=== PATIENT | female | born 1945 ===

== ENCOUNTER 2019-04-13 17:59 | Outpatient (CLI) | payer OTHER | END 2019-04-13 18:00 | disposition home or self-care (01) | LOC: LAB 17:59 | DX: Z00.01 Encounter for general adult medical examination with abnormal findings (principal); D64.89 Other specified anemias ==

== ENCOUNTER 2024-03-06 10:52 | Inpatient (IN) | payer OTHER ==
[~2024-03-06] VITALS: Ht 152.4 cm; Wt 45.4 kg
[2024-03-06] MEDS ORDERED: FAMOtidine 10 MG/ML (4ML VIAL) IV ONE (11:15)
[2024-03-06] MEDS ORDERED: 0.9 % SODIUM CHLORIDE 1,000 ML IV ONE (11:15)
[2024-03-06] MEDS ORDERED: FAMOTIDINE/PF 20 MG/2 ML VIAL ONE (11:20)
[2024-03-06 11:51] LABS: MEAN CELL VOLUME 110.3 fL (80.00-100.00); MEAN CORPUSCULAR HGB CONC 36.5 g/dl (32.0-36.0); PLATELET COUNT 133 K/uL (150-450); RED BLOOD COUNT 1.84 M/uL (4.00-6.00); RED CELL DISTRIBUTION WIDTH 14.5 % (11.5-14.5)
[2024-03-06 12:02] LABS: MEAN CORPUSCULAR HEMOGLOBIN 40.2 pg (27.00-32.0)
[2024-03-06 12:03] LABS: HEMATOCRIT 20.3 % (36.0-45.00); HEMOGLOBIN 7.4 g/dL (12.0-15.00)
[2024-03-06 12:05] LABS: INR 1.06; PARTIAL THROMBOPLASTIN TIME 22.5 SECONDS (22.0-34.0); PROTHROMBIN TIME 11.5 SECONDS (9.0-11.5)
[2024-03-06 12:15] LABS: ALBUMIN 3.5 gm/dL (3.4-5.0); CALCIUM 9.2 mg/dL (8.5-10.1); CREATININE SERUM 1.85 mg/dL (0.55-1.02); GFR 26.36; GLOBULINA 4.2 G/DL (2.4-3.5); TOTAL PROTEIN 7.7 gm/dL (6.4-8.2)
[2024-03-06 12:34] LABS: BILIRUBIN,CONJUGATED 0.18 mg/dL (0.0-0.2); POTASSIUM 3.22 mEq/L (3.5-5.1)
[2024-03-06 12:59] LABS: BILIRUBIN TOTAL 8.18 mg/dL (0.3-1.2)
[2024-03-06 17:06] LABS: URINE APPEARANCE Turbid; URINE BILIRRUBIN Small (NEGATIVE); URINE BLOOD Small; URINE COLOR Red; URINE GLUCOSE Negative (NEGATIVE); URINE KETONE Negative (NEGATIVE); URINE LEUKOCYTE Moderate; URINE NITRATE Positive; URINE PROTEIN 30 (NEGATIVE); URINE UROBILINOGEN 0.2 E.U./dl
[2024-03-06 17:13] LABS: URINE BACTERIA 60.4 uL (0.0-1933); URINE CAST 2.28 uL (0.0-1.40); URINE EPITHELIAL CELLS 79.6 uL (0.0-38.8); URINE RBC 604.4 uL (0.0-20.8); URINE WBC 15.9 uL (0.0-23.2)
[2024-03-06 17:49] LABS: URINE YEAST NEGATIVE /hpf
[2024-03-06] MEDS ORDERED: DEXTROSE 5 % AND 0.9 % NACL 1,000 ML IV SCH (19:45)
[2024-03-06] MEDS ORDERED: DIPHENHYDRAMINE HCL 50 MG/ML VIAL 1ML IV ONE (19:45)
[2024-03-06] MEDS ORDERED: METHYLPREDNISOLONE SOD SUCC 40 MG VIAL IV ONE (19:45)
[2024-03-06] MEDS ORDERED: FUROsemide 20 MG/2 ML VIAL IV SCH (19:45)
[2024-03-06] MEDS ORDERED: ONDANSETRON HCL 4 MG in 0.9 % SODIUM CHLORIDE 50 ML IV PRN (20:00)
[2024-03-06] MEDS ORDERED: hydrALAZINE HCL 20 MG VIAL IV PRN (20:00)
[2024-03-06] MEDS ORDERED: CEFTRIAXONE SODIUM 1,000 MG VIAL IV SCH (20:16)
[2024-03-06] MEDS ORDERED: DIPHENHYDRAMINE HCL 50 MG/ML VIAL 1ML ONE (20:23)
[2024-03-06] MEDS ORDERED: METHYLPREDNISOLONE SOD SUCC 40 MG VIAL ONE (20:23)
[2024-03-06] MEDS ORDERED: CEFTRIAXONE SODIUM 1,000 MG VIAL ONE (21:28)
[2024-03-06 21:47] VITALS: BP 169/75; O2SAT 100
[2024-03-07 00:19] VITALS: BP 179/67; O2SAT 98
[2024-03-07 03:10] VITALS: BP 156/88; O2SAT 100
[2024-03-07] MEDS ORDERED: PANTOPRAZOLE SODIUM 40 MG in 0.9 % SODIUM CHLORIDE 8 ML IV PUSH SCH (09:00)
[2024-03-07 09:33] VITALS: BP 155/67
[2024-03-07] MEDS ORDERED: METHYLPREDNISOLONE SOD SUCC 40 MG VIAL IV SCH (13:00)
[2024-03-07 18:32] VITALS: BP 152/61
[2024-03-07] MEDS ORDERED: PANTOPRAZOLE SODIUM 40 MG/VIAL VIAL IV PUSH SCH (21:00)
[2024-03-08 03:35] VITALS: BP 165/79; O2SAT 98
[2024-03-08 08:44] LABS: MEAN CELL VOLUME 108.3 fL (80.00-100.00); PLATELET COUNT 141 K/uL (150-450); RED BLOOD COUNT 2.04 M/uL (4.00-6.00)
[2024-03-08 08:55] LABS: ERYTHROCYTE SEDIMENTATION RATE > 130 mm/hr
[2024-03-08] MEDS ORDERED: CEFTRIAXONE SODIUM 2,000 MG VIAL IV SCH (09:00)
[2024-03-08 09:06] LABS: HEMATOCRIT 22.1 % (36.0-45.00); MEAN CORPUSCULAR HEMOGLOBIN 37.7 pg (27.00-32.0); RED CELL DISTRIBUTION WIDTH 17.5 % (11.5-14.5)
[2024-03-08 09:07] VITALS: BP 166/87; O2SAT 97
[2024-03-08 09:07] LABS: HEMOGLOBIN 7.7 g/dL (12.0-15.00)
[2024-03-08 09:31] LABS: ALBUMIN 3.9 gm/dL (3.4-5.0); BILIRUBIN TOTAL 2.72 mg/dL (0.3-1.2); BILIRUBIN,CONJUGATED 0.43 mg/dL (0.0-0.2); BILIRUBIN,UNCONJUGATED 2.29 mg/dL (0.0-0.6); C-REACTIVE PROTEIN 0.79 MG/DL (0.00-0.29); CALCIUM 8.8 mg/dL (8.5-10.1); CHOL HDL RATIO 2.2 (0-5.0); CREATININE SERUM 1.15 mg/dL (0.55-1.02); GFR 45.63; GLOBULINA 4.2 G/DL (2.4-3.5); POTASSIUM 3.4 mEq/L (3.5-5.1); TOTAL PROTEIN 8.1 gm/dL (6.4-8.2)
[2024-03-08 09:42] LABS: URIC ACID 5.5 mg/dL (2.5-7.5)
[2024-03-08 10:22] LABS: ob NEGATIVE (NEGATIVE)
[2024-03-08 11:42] LABS: URINE APPEARANCE Cloudy; URINE BILIRRUBIN Negative (NEGATIVE); URINE BLOOD Large; URINE COLOR Yellow; URINE GLUCOSE Negative (NEGATIVE); URINE KETONE Trace (NEGATIVE); URINE LEUKOCYTE Trace; URINE NITRATE Negative; URINE PROTEIN 30 (NEGATIVE); URINE UROBILINOGEN 0.2 E.U./dl
[2024-03-08 11:44] LABS: URINE BACTERIA 25.1 uL (0.0-1933); URINE EPITHELIAL CELLS 33.5 uL (0.0-38.8); URINE RBC 157.2 uL (0.0-20.8); URINE WBC 18.8 uL (0.0-23.2)
[2024-03-08 11:52] LABS: URINE CAST 0.61 uL (0.0-1.40)
[2024-03-08 18:15] VITALS: BP 160/74; O2SAT 96
[2024-03-08] MEDS ORDERED: DEXTROSE 5 %-0.45 % SOD CHLORD 1,000 ML IV SCH (18:30)
[2024-03-08] MEDS ORDERED: POTASSIUM CHLORIDE 20MEQ/100ML H2O PB IV ONE (19:08)
[2024-03-08] MEDS ORDERED: POTASSIUM CHLORIDE IN WATER 100 ML IV SCH (20:00)
[2024-03-09] MEDS ORDERED: hydrALAZINE HCL 20 MG VIAL IV SCH
[2024-03-09 02:19] VITALS: BP 156/55
[2024-03-09 07:06] LABS: hav igm Negative (Negative); hcv Non Reactive (Non Reactive); hep b c Negative (Negative); hep b s ag Negative (Negative)
[2024-03-09 09:10] LABS: HAPTOGLOBIN < 10 mg/dL (42-346)
[2024-03-09 09:20] LABS: PLATELET ESTIMATE NORMAL (NORMAL)
[2024-03-09 09:39] VITALS: BP 168/80; O2SAT 100
[2024-03-09 10:39] LABS: ALBUMIN 3.7 gm/dL (3.4-5.0); BILIRUBIN TOTAL 1.93 mg/dL (0.3-1.2); CALCIUM 8.6 mg/dL (8.5-10.1); CREATININE SERUM 1.11 mg/dL (0.55-1.02); GFR 47.54; GLOBULINA 3.8 G/DL (2.4-3.5); POTASSIUM 3.46 mEq/L (3.5-5.1); TOTAL PROTEIN 7.5 gm/dL (6.4-8.2)
[2024-03-09 10:41] LABS: BILIRUBIN,CONJUGATED 0.34 mg/dL (0.0-0.2); BILIRUBIN,UNCONJUGATED 1.59 mg/dL (0.0-0.6)
[2024-03-09 18:13] VITALS: BP 160/80; O2SAT 97
[2024-03-10 02:42] VITALS: BP 175/81
[2024-03-10 09:22] VITALS: BP 175/77
[2024-03-10 17:07] VITALS: BP 147/62
[2024-03-10 19:11] LABS: MEAN CELL VOLUME 111.2 fL (80.00-100.00); MEAN CORPUSCULAR HGB CONC 34.1 g/dl (32.0-36.0); RED BLOOD COUNT 1.99 M/uL (4.00-6.00); RED CELL DISTRIBUTION WIDTH 18.8 % (11.5-14.5)
[2024-03-10 19:18] LABS: HEMATOCRIT 22.1 % (36.0-45.00); MEAN CORPUSCULAR HEMOGLOBIN 37.6 pg (27.00-32.0); PLATELET COUNT 86 K/uL (150-450)
[2024-03-10 19:19] LABS: HEMOGLOBIN 7.5 g/dL (12.0-15.00)
[2024-03-11 02:34] VITALS: BP 106/50; O2SAT 98
[2024-03-11 04:44] VITALS: O2SAT 98
[2024-03-11 09:23] VITALS: BP 122/67; O2SAT 98
[2024-03-11 12:57] LABS: HEMATOCRIT 24.9 % (36.0-45.00); MEAN CELL VOLUME 105.9 fL (80.00-100.00); MEAN CORPUSCULAR HGB CONC 34.8 g/dl (32.0-36.0); RED BLOOD COUNT 2.36 M/uL (4.00-6.00); RED CELL DISTRIBUTION WIDTH 19.3 % (11.5-14.5)
[2024-03-11 13:38] LABS: MEAN CORPUSCULAR HEMOGLOBIN 36.8 pg (27.00-32.0)
[2024-03-11 13:40] LABS: HEMOGLOBIN 8.7 g/dL (12.0-15.00)
[2024-03-11 13:44] LABS: PLATELET COUNT 25 K/uL (150-450)
[2024-03-11] MEDS ORDERED: ACETAMINOPHEN 500 MG GEL..CAP PO PRN (15:15)
[2024-03-11 16:43] VITALS: BP 108/73; O2SAT 97
[2024-03-11 20:56] VITALS: BP 130/78
[2024-03-11] MEDS ORDERED: MORPHINE SULFATE 4 MG/ML VIAL IV SCH (21:00)
[2024-03-12 00:57] VITALS: BP 131/65; O2SAT 98
[2024-03-12 08:00] VITALS: BP 103/62; O2SAT 97
[2024-03-12] MEDS ORDERED: MORPHINE SULFATE 4 MG/ML CARTRIDGE IV SCH (09:00)
[2024-03-12 17:06] VITALS: BP 134/73; O2SAT 97
[2024-03-13 00:49] VITALS: BP 150/77; O2SAT 98
[2024-03-13 08:47] VITALS: BP 160/83
[2024-03-13 12:37] LABS: HEMATOCRIT 29.2 % (36.0-45.00); HEMOGLOBIN 10.2 g/dL (12.0-15.00); MEAN CELL VOLUME 92.7 fL (80.00-100.00); MEAN CORPUSCULAR HEMOGLOBIN 32.3 pg (27.00-32.0); MEAN CORPUSCULAR HGB CONC 34.8 g/dl (32.0-36.0); RED BLOOD COUNT 3.15 M/uL (4.00-6.00); RED CELL DISTRIBUTION WIDTH 19.9 % (11.5-14.5)
[2024-03-13 12:41] LABS: PLATELET COUNT 21 K/uL (150-450)
[2024-03-13 17:17] VITALS: BP 184/81
[2024-03-14 00:44] VITALS: BP 150/69; O2SAT 97
[2024-03-14 08:03] LABS: ALBUMIN 2.2 gm/dL (3.4-5.0); BILIRUBIN TOTAL 3.81 mg/dL (0.3-1.2); GLOBULINA 2.6 G/DL (2.4-3.5); TOTAL PROTEIN 4.8 gm/dL (6.4-8.2)
[2024-03-14 08:11] LABS: HEMATOCRIT 28.2 % (36.0-45.00); MEAN CELL VOLUME 92.9 fL (80.00-100.00); MEAN CORPUSCULAR HGB CONC 35.5 g/dl (32.0-36.0); RED BLOOD COUNT 3.04 M/uL (4.00-6.00); RED CELL DISTRIBUTION WIDTH 20.6 % (11.5-14.5)
[2024-03-14 08:50] VITALS: BP 156/80
[2024-03-14 09:06] LABS: PLATELET COUNT 10 K/uL (150-450)
[2024-03-14 09:16] LABS: CALCIUM 6.3 mg/dL (8.5-10.1); GFR 7.08; POTASSIUM 2.88 mEq/L (3.5-5.1)
[2024-03-14 09:17] LABS: CREATININE SERUM 5.78 mg/dL (0.55-1.02)
[2024-03-14] MEDS ORDERED: POTASSIUM CHLORIDE IN WATER 100 ML IV SCH (12:00)
[2024-03-14 17:18] VITALS: BP 194/78
[2024-03-14] MEDS ORDERED: POTASSIUM CHLORIDE IN WATER 40 MEQ/100 ML PIGGYBAG IV ONE (18:45)
[2024-03-14] MEDS ORDERED: PIPERACILLIN/TAZOBACTAM SODIUM 2.25 GM VIAL IV SCH (18:47)
[2024-03-15 00:59] VITALS: BP 160/77; O2SAT 97
[2024-03-15 04:38] VITALS: BP 134/62; O2SAT 97
[2024-03-15 06:54] LABS: HEMATOCRIT 26.6 % (36.0-45.00); HEMOGLOBIN 9.2 g/dL (12.0-15.00); MEAN CELL VOLUME 92.8 fL (80.00-100.00); MEAN CORPUSCULAR HEMOGLOBIN 32.2 pg (27.00-32.0); MEAN CORPUSCULAR HGB CONC 34.7 g/dl (32.0-36.0); RED BLOOD COUNT 2.87 M/uL (4.00-6.00); RED CELL DISTRIBUTION WIDTH 20.1 % (11.5-14.5)
[2024-03-15 07:35] LABS: PLATELET COUNT 16 K/uL (150-450)
[2024-03-15 07:41] LABS: BILIRUBIN TOTAL 2.49 mg/dL (0.3-1.2); GLOBULINA 2.9 G/DL (2.4-3.5); TOTAL PROTEIN 4.9 gm/dL (6.4-8.2); URIC ACID 10.3 mg/dL (2.5-7.5)
[2024-03-15 08:20] LABS: GFR 6.48
[2024-03-15 08:21] LABS: CREATININE SERUM 6.24 mg/dL (0.55-1.02)
[2024-03-15 08:22] LABS: POTASSIUM 2.85 mEq/L (3.5-5.1)
[2024-03-15 08:47] VITALS: BP 143/56
[2024-03-15 08:53] LABS: PLATELET ESTIMATE DECREASED (NORMAL)
[2024-03-15] MEDS ORDERED: FUROsemide 40 MG/4 ML VIAL IV NR (14:04)
[2024-03-15] MEDS ORDERED: DEXAMETHASONE SODIUM PHOSPHATE 4 MG/ML VIAL IJ SCH ×2 (17:00→21:00)
[2024-03-15] MEDS ORDERED: AMPICILLIN SODIUM/SULBACTAM NA 3,000 MG VIAL IV SCH (17:00)
[2024-03-15 18:10] VITALS: BP 134/76
[2024-03-16 01:49] VITALS: BP 140/85
[2024-03-16 08:56] LABS: ALBUMIN 2.4 gm/dL (3.4-5.0); BILIRUBIN TOTAL 2.1 mg/dL (0.3-1.2); CALCIUM 7.8 mg/dL (8.5-10.1); GFR 6.03; GLOBULINA 3.3 G/DL (2.4-3.5); POTASSIUM 3.12 mEq/L (3.5-5.1); TOTAL PROTEIN 5.7 gm/dL (6.4-8.2)
[2024-03-16 09:00] VITALS: BP 145/71
[2024-03-16 09:14] LABS: CREATININE SERUM 6.64 mg/dL (0.55-1.02)
[2024-03-16] MEDS ORDERED: RINGERS SOLUTION,LACTATED 1,000 ML IV SCH (10:15)
[2024-03-16] MEDS ORDERED: MAGNESIUM SULFATE IN WATER 50 ML IV NR (11:00)
[2024-03-16 11:08] LABS: ABG PH 7.379 (7.35-7.45); ABG PO2 90.9 mmHg (80-100); ABG pCO2 26.3 mmHg (35-45); BASE EXCESS -8.1 mmol/l; BICARBONATE 15.2 mmol/l (23-25); SaO2 96.6 %
[2024-03-16 11:15] LABS: allen test SATISFACTORY; o2 21 %; puncture site RADIAL LEFT
[2024-03-16 12:14] LABS: HEMATOCRIT 26.9 % (36.0-45.00); HEMOGLOBIN 9.2 g/dL (12.0-15.00); MEAN CELL VOLUME 92.1 fL (80.00-100.00); MEAN CORPUSCULAR HEMOGLOBIN 31.5 pg (27.00-32.0); MEAN CORPUSCULAR HGB CONC 34.2 g/dl (32.0-36.0); RED BLOOD COUNT 2.92 M/uL (4.00-6.00); RED CELL DISTRIBUTION WIDTH 19.4 % (11.5-14.5)
[2024-03-16 12:16] LABS: PLATELET COUNT 43 K/uL (150-450)
[2024-03-16 12:37] LABS: INR 1.24; PARTIAL THROMBOPLASTIN TIME 36.9 SECONDS (22.0-34.0); PROTHROMBIN TIME 13.3 SECONDS (9.0-11.5)
[2024-03-16] MEDS ORDERED: POTASSIUM CHLORIDE IN WATER 100 ML IV SCH (13:00)
[2024-03-16 13:18] LABS: ALBUMIN 2.3 gm/dL (3.4-5.0); BILIRUBIN TOTAL 1.82 mg/dL (0.3-1.2); CALCIUM 7.7 mg/dL (8.5-10.1); GLOBULINA 3.3 G/DL (2.4-3.5); TOTAL PROTEIN 5.6 gm/dL (6.4-8.2)
[2024-03-16 13:23] LABS: PLATELET ESTIMATE NORMAL (NORMAL)
[2024-03-16 13:35] LABS: GFR 5.99
[2024-03-16 13:37] LABS: POTASSIUM 2.84 mEq/L (3.5-5.1)
[2024-03-16 13:38] LABS: CREATININE SERUM 6.68 mg/dL (0.55-1.02)
[2024-03-16 17:03] VITALS: BP 170/65
[2024-03-16] MEDS ORDERED: METRONIDAZOLE/SODIUM CHLORIDE 100 ML IV SCH (21:00)
[2024-03-17] MEDS ORDERED: DEXAMETHASONE SODIUM PHOSPHATE 4 MG/ML VIAL IV SCH (01:00)
[2024-03-17 02:50] VITALS: BP 160/80; O2SAT 98
[2024-03-17 06:56] LABS: URINE APPEARANCE Clear; URINE BILIRRUBIN Negative (NEGATIVE); URINE BLOOD Large; URINE COLOR Yellow; URINE GLUCOSE Negative (NEGATIVE); URINE KETONE Negative (NEGATIVE); URINE LEUKOCYTE Negative; URINE NITRATE Negative; URINE PROTEIN 30 (NEGATIVE); URINE UROBILINOGEN 0.2 E.U./dl
[2024-03-17 06:59] LABS: URINE BACTERIA 36.5 uL (0.0-1933); URINE EPITHELIAL CELLS 14.5 uL (0.0-38.8); URINE WBC 16.6 uL (0.0-23.2)
[2024-03-17 07:34] LABS: URINE CAST 0.45 uL (0.0-1.40); URINE CRYSTALS FEW /HPF
[2024-03-17] MEDS ORDERED: 0.9 % SODIUM CHLORIDE 1,000 ML IV SCH (09:30)
[2024-03-17 09:34] VITALS: BP 180/78
[2024-03-17] MEDS ORDERED: POTASSIUM CHLORIDE IN WATER 40 MEQ/100 ML PIGGYBAG IV NR (12:15)
[2024-03-17 18:37] VITALS: BP 188/89
[2024-03-18 01:21] VITALS: BP 160/72; O2SAT 97
[2024-03-18] MEDS ORDERED: AMLODIPINE BESYLATE 5 MG TABLET PO SCH (09:21)
[2024-03-18 09:50] VITALS: BP 180/98
[2024-03-18 11:50] LABS: MEAN CELL VOLUME 91.7 fL (80.00-100.00); MEAN CORPUSCULAR HEMOGLOBIN 31.9 pg (27.00-32.0); MEAN CORPUSCULAR HGB CONC 34.8 g/dl (32.0-36.0); PLATELET COUNT 56 K/uL (150-450); RED BLOOD COUNT 2.19 M/uL (4.00-6.00); RED CELL DISTRIBUTION WIDTH 19.2 % (11.5-14.5)
[2024-03-18] MEDS ORDERED: hydrALAZINE HCL 20 MG VIAL IV PRN (12:00)
[2024-03-18 12:24] LABS: ALBUMIN 2.9 gm/dL (3.4-5.0); BILIRUBIN TOTAL 1.25 mg/dL (0.3-1.2); CALCIUM 7.7 mg/dL (8.5-10.1); GLOBULINA 3.5 G/DL (2.4-3.5); MAGNESIUM 2.1 mg/dL (1.8-2.4); PHOSPHOROUS 5.8 mg/dL (2.5-4.9); POTASSIUM 3.62 mEq/L (3.5-5.1); TOTAL PROTEIN 6.4 gm/dL (6.4-8.2)
[2024-03-18 12:51] LABS: C-REACTIVE PROTEIN 5.97 MG/DL (0.00-0.29); GFR 7.71
[2024-03-18 12:59] LABS: CREATININE SERUM 5.37 mg/dL (0.55-1.02)
[2024-03-18] MEDS ORDERED: METRONIDAZOLE/SODIUM CHLORIDE 100 ML IV SCH (17:00)
[2024-03-18 17:14] LABS: CALCIUM 7.7 mg/dL (8.5-10.1); GFR 7.5; POTASSIUM 3.68 mEq/L (3.5-5.1)
[2024-03-18 17:39] LABS: CREATININE SERUM 5.5 mg/dL (0.55-1.02)
[2024-03-18 17:55] VITALS: BP 145/79
[2024-03-18] MEDS ORDERED: PANTOPRAZOLE SODIUM 80 MG in 0.9 % SODIUM CHLORIDE 100 ML IV SCH (18:15)
[2024-03-18] MEDS ORDERED: FUROsemide 20 MG/2 ML VIAL IV SCH (18:15)
[2024-03-19 00:37] VITALS: BP 157/76
[2024-03-19 06:56] LABS: ALBUMIN 2.8 gm/dL (3.4-5.0); BILIRUBIN TOTAL 1.07 mg/dL (0.3-1.2); CALCIUM 7.7 mg/dL (8.5-10.1); GFR 7.66; GLOBULINA 3.2 G/DL (2.4-3.5); POTASSIUM 3.69 mEq/L (3.5-5.1)
[2024-03-19 06:58] LABS: MEAN CELL VOLUME 91.3 fL (80.00-100.00); MEAN CORPUSCULAR HGB CONC 35.8 g/dl (32.0-36.0); RED BLOOD COUNT 1.92 M/uL (4.00-6.00); RED CELL DISTRIBUTION WIDTH 19.2 % (11.5-14.5)
[2024-03-19 07:16] LABS: CREATININE SERUM 5.4 mg/dL (0.55-1.02)
[2024-03-19 08:09] LABS: HEMATOCRIT 17.5 % (36.0-45.00); MEAN CORPUSCULAR HEMOGLOBIN 32.8 pg (27.00-32.0)
[2024-03-19 08:10] LABS: HEMOGLOBIN 6.3 g/dL (12.0-15.00)
[2024-03-19 08:11] LABS: PLATELET COUNT 85 K/uL (150-450)
[2024-03-19] MEDS ORDERED: PANTOPRAZOLE SODIUM 40 MG/VIAL VIAL ONE (08:27)
[2024-03-19 09:14] VITALS: BP 197/84
[2024-03-19] MEDS ORDERED: METHYLPREDNISOLONE IV SCH (11:00)
[2024-03-19] MEDS ORDERED: MEROPENEM 500 MG/VIAL VIAL IV SCH (13:41)
[2024-03-19] MEDS ORDERED: METHYLPREDNISOLONE SOD SUCC 125 MG VIAL IV SCH (14:00)
[2024-03-19] MEDS ORDERED: AA 5 %/CALCIUM/LYTES/DEXT 20 % 2,000 ML CENTRAL SCH (17:00)
[2024-03-19] MEDS ORDERED: VANCOMYCIN HCL 5 MG/ML REDILUIDO IV SCH (17:00)
[2024-03-19 18:23] VITALS: BP 237/89; O2SAT 96
[2024-03-19] MEDS ORDERED: LIDOCAINE HCL 1% 10ML VIAL ONE (19:32)
[2024-03-19 20:07] LABS: CALCIUM 7.3 mg/dL (8.5-10.1); CHOL HDL RATIO 3.1 (0-5.0); GFR 8.65; POTASSIUM 3.56 mEq/L (3.5-5.1)
[2024-03-19] MEDS ORDERED: LIDOCAINE HCL 1% 10ML VIAL PERCUT ONE (20:45)
[2024-03-19 21:10] LABS: CREATININE SERUM 4.86 mg/dL (0.55-1.02)
[2024-03-20] VITALS (20 sets, daily range): BP systolic 140–185; BP diastolic 76–101; O2SAT 95–100
[2024-03-20] MEDS ORDERED: AMLODIPINE BESYLATE 5 MG TABLET PO STA (05:22)
[2024-03-20] MEDS ORDERED: NITROGLYCERIN IN 5 % DEXTROSE 50 MG/250 ML KIT IV SCH (05:30)
[2024-03-20 08:09] LABS: PH,URINE 5.5 (5.0-8.0); URINE APPEARANCE Clear; URINE BILIRRUBIN Negative (NEGATIVE); URINE BLOOD Moderate; URINE COLOR Yellow; URINE KETONE Negative (NEGATIVE); URINE LEUKOCYTE Negative; URINE NITRATE Negative; URINE PROTEIN Trace (NEGATIVE); URINE UROBILINOGEN 0.2 E.U./dl
[2024-03-20 08:11] LABS: URINE BACTERIA 17.6 uL (0.0-1933); URINE EPITHELIAL CELLS 12.8 uL (0.0-38.8); URINE RBC 225.3 uL (0.0-20.8); URINE WBC 6.8 uL (0.0-23.2)
[2024-03-20 08:14] LABS: URINE CAST 1.37 uL (0.0-1.40); URINE GLUCOSE >=1000 MG/DL (NEGATIVE)
[2024-03-20] MEDS ORDERED: NITROGLYCERIN IN 5 % DEXTROSE 250 ML IV SCH (12:30)
[2024-03-20] MEDS ORDERED: hydrALAZINE HCL 50 MG TABLET PO STA (14:31)
[2024-03-20] MEDS ORDERED: DEXTROSE 5 %-0.45 % SOD CHLORD 1,000 ML IV SCH (17:00)
[2024-03-20] MEDS ORDERED: INSULIN NPH HUMAN ISOPHANE 1,000 UNITS/10 ML UNITS SUBCUTANEO STA (17:51)
[2024-03-20] MEDS ORDERED: INSULIN REGULAR, HUMAN 1,000 UNIT/10 ML UNITS IV STA (17:52)
[2024-03-20] MEDS ORDERED: INSULIN REGULAR, HUMAN 1,000 UNIT/10 ML UNITS ONE (17:54)
[2024-03-20] MEDS ORDERED: INSULIN NPH HUMAN ISOPHANE 1,000 UNITS/10 ML UNITS SUBCUTANEO ONE (17:57)
[2024-03-20] MEDS ORDERED: DEXTROSE 50 % IN WATER 0.5 G/ML DISP.SYRIN IV PRN (18:00)
[2024-03-20] MEDS ORDERED: INSULIN LISPRO 1,000 UNIT/10 ML UNITS SUBCUTANEO PRN (18:00)
[2024-03-20 19:11] LABS: HEMATOCRIT 38.5 % (36.0-45.00); HEMOGLOBIN 12.9 g/dL (12.0-15.00); MEAN CELL VOLUME 94.5 fL (80.00-100.00); MEAN CORPUSCULAR HEMOGLOBIN 31.7 pg (27.00-32.0); MEAN CORPUSCULAR HGB CONC 33.5 g/dl (32.0-36.0); RED BLOOD COUNT 4.07 M/uL (4.00-6.00); RED CELL DISTRIBUTION WIDTH 16.5 % (11.5-14.5)
[2024-03-20 19:12] LABS: PLATELET COUNT 34 K/uL (150-450)
[2024-03-20] MEDS ORDERED: CLEVIDIPINE BUTYRATE 100 ML IV SCH (19:15)
[2024-03-20 19:38] LABS: INR 1.35; PARTIAL THROMBOPLASTIN TIME 27.6 SECONDS (22.0-34.0); PROTHROMBIN TIME 14.4 SECONDS (9.0-11.5)
[2024-03-20 19:43] LABS: ALBUMIN 3.6 gm/dL (3.4-5.0); BILIRUBIN TOTAL 1.77 mg/dL (0.3-1.2); CALCIUM 8.4 mg/dL (8.5-10.1); PHOSPHOROUS 7.4 mg/dL (2.5-4.9); POTASSIUM 3.53 mEq/L (3.5-5.1); TOTAL PROTEIN 7.6 gm/dL (6.4-8.2)
[2024-03-20 20:47] LABS: C-REACTIVE PROTEIN 3.05 MG/DL (0.00-0.29); GFR 8.9
[2024-03-20 20:48] LABS: CREATININE SERUM 4.74 mg/dL (0.55-1.02)
[2024-03-20] MEDS ORDERED: hydrALAZINE HCL 50 MG TABLET PO SCH (21:00)
[2024-03-21] VITALS (18 sets, daily range): BP systolic 128–179; BP diastolic 72–111; O2SAT 93–97
[2024-03-21] MEDS ORDERED: INSULIN LISPRO 1,000 UNIT/10 ML UNITS SUBCUTANEO ONE (00:12)
[2024-03-21] MEDS ORDERED: INSULIN NPH HUMAN ISOPHANE 1,000 UNITS/10 ML UNITS SUBCUTANEO ONE (00:12)
[2024-03-21] MEDS ORDERED: INSULIN NPH HUMAN ISOPHANE 1,000 UNITS/10 ML UNITS SUBCUTANEO SCH (01:00)
[2024-03-21 01:37] LABS: INR 1.38; PARTIAL THROMBOPLASTIN TIME 27.9 SECONDS (22.0-34.0); PROTHROMBIN TIME 14.7 SECONDS (9.0-11.5)
[2024-03-21 02:15] LABS: ALBUMIN 3.9 gm/dL (3.4-5.0); CALCIUM 8.9 mg/dL (8.5-10.1); PHOSPHOROUS 6.3 mg/dL (2.5-4.9); POTASSIUM 3.6 mEq/L (3.5-5.1)
[2024-03-21 02:37] LABS: CREATININE SERUM 4.54 mg/dL (0.55-1.02); GFR 9.36
[2024-03-21 02:39] LABS: HEMATOCRIT 45.1 % (36.0-45.00); HEMOGLOBIN 15.4 g/dL (12.0-15.00); MEAN CELL VOLUME 92.9 fL (80.00-100.00); MEAN CORPUSCULAR HEMOGLOBIN 31.9 pg (27.00-32.0); MEAN CORPUSCULAR HGB CONC 34.3 g/dl (32.0-36.0); PLATELET COUNT 33 K/uL (150-450); RED BLOOD COUNT 4.85 M/uL (4.00-6.00); RED CELL DISTRIBUTION WIDTH 16.3 % (11.5-14.5)
[2024-03-21] MEDS ORDERED: NITROGLYCERIN IN 5 % DEXTROSE 250 ML IV SCH (05:30)
[2024-03-21] MEDS ORDERED: DIPHENHYDRAMINE HCL 50 MG/ML VIAL 1ML IV SCH (09:00)
[2024-03-21] MEDS ORDERED: CALCIUM GLUCONATE 100 MG/ML VIAL IV NR (17:00)
[2024-03-21] MEDS ORDERED: PANTOPRAZOLE SODIUM 40 MG/VIAL VIAL IV PUSH SCH (17:00)
[2024-03-21] MEDS ORDERED: DIPHENHYDRAMINE HCL 50 MG/ML VIAL 1ML IV NR (17:00)
[2024-03-21] MEDS ORDERED: DEXAMETHASONE SODIUM PHOSP/PF 10 MG/ML VIAL IV SCH (17:00)
[2024-03-21] MEDS ORDERED: HEPARIN SODIUM,PORCINE 5,000 UNITS/ML VIAL IV SCH (20:30)
[2024-03-22] VITALS (24 sets, daily range): BP systolic 113–175; BP diastolic 69–122; O2SAT 94–100
[2024-03-22 02:56] LABS: HEMATOCRIT 50.2 % (36.0-45.00); HEMOGLOBIN 17.9 g/dL (12.0-15.00); MEAN CELL VOLUME 90.7 fL (80.00-100.00); MEAN CORPUSCULAR HEMOGLOBIN 32.3 pg (27.00-32.0); MEAN CORPUSCULAR HGB CONC 35.6 g/dl (32.0-36.0); RED BLOOD COUNT 5.53 M/uL (4.00-6.00); RED CELL DISTRIBUTION WIDTH 16.5 % (11.5-14.5)
[2024-03-22 03:01] LABS: INR 1.37; PARTIAL THROMBOPLASTIN TIME 28.3 SECONDS (22.0-34.0)
[2024-03-22 03:09] LABS: ALBUMIN 3.3 gm/dL (3.4-5.0); BILIRUBIN TOTAL 1.86 mg/dL (0.3-1.2); BILIRUBIN,CONJUGATED 0.5 mg/dL (0.0-0.2); BILIRUBIN,UNCONJUGATED 1.36 mg/dL (0.0-0.6); CALCIUM 8.9 mg/dL (8.5-10.1); CHOL HDL RATIO 2.2 (0-5.0); CREATININE SERUM 3.44 mg/dL (0.55-1.02); GFR 12.89; MAGNESIUM 1.7 mg/dL (1.8-2.4); POTASSIUM 3.09 mEq/L (3.5-5.1); TOTAL PROTEIN 6.6 gm/dL (6.4-8.2)
[2024-03-22 03:10] LABS: PROTHROMBIN TIME 14.6 SECONDS (9.0-11.5)
[2024-03-22 03:42] LABS: PLATELET COUNT 15 K/uL (150-450)
[2024-03-22] MEDS ORDERED: DEXTROSE 5 % IN WATER 1,000 ML IV SCH (06:30)
[2024-03-22] MEDS ORDERED: HEPARIN SODIUM,PORCINE 5,000 UNITS/ML VIAL IV SCH (06:45)
[2024-03-22] MEDS ORDERED: INSULIN NPH HUMAN ISOPHANE 1,000 UNITS/10 ML UNITS SUBCUTANEO SCH (09:00)
[2024-03-22 09:07] LABS: UREA CLEARANCE 6.6 ML/MIN
[2024-03-22 12:37] LABS: ABG PH 7.473 (7.35-7.45); ABG PO2 82.8 mmHg (80-100); ABG pCO2 38.1 mmHg (35-45); BASE EXCESS 3.6 mmol/l; BICARBONATE 27.2 mmol/l (23-25); Tco2 28.4 mmol/l
[2024-03-22 12:47] LABS: allen test SATISFACTORY; o2 50 %; puncture site RADIAL RIGHT
[2024-03-22] MEDS ORDERED: ANIDULAFUNGIN 100 MG VIAL IV NR (15:13)
[2024-03-22] MEDS ORDERED: MAGNESIUM SULFATE IN WATER 2 GM/50 ML PIGGYBAG IV NR (17:00)
[2024-03-22] MEDS ORDERED: DOXAZOSIN MESYLATE 2 MG TABLET PO SCH (17:00)
[2024-03-22] MEDS ORDERED: POTASSIUM CHLORIDE IN WATER 40 MEQ/100 ML PIGGYBAG IV NR (17:00)
[2024-03-22] MEDS ORDERED: hydrALAZINE HCL 20 MG VIAL IV SCH (18:00)
[2024-03-22] MEDS ORDERED: MEROPENEM 500 MG/VIAL VIAL IV SCH (21:00)
[2024-03-22] MEDS ORDERED: VANCOMYCIN HCL 500 MG VIAL IV SCH (21:00)
[2024-03-22 22:30] LABS: HEMATOCRIT 53.3 % (36.0-45.00); HEMOGLOBIN 17.4 g/dL (12.0-15.00); MEAN CELL VOLUME 93.6 fL (80.00-100.00); MEAN CORPUSCULAR HEMOGLOBIN 30.6 pg (27.00-32.0); MEAN CORPUSCULAR HGB CONC 32.7 g/dl (32.0-36.0); RED BLOOD COUNT 5.69 M/uL (4.00-6.00)
[2024-03-22 22:53] LABS: INR 1.3; PROTHROMBIN TIME 13.9 SECONDS (9.0-11.5)
[2024-03-22 23:52] LABS: PLATELET COUNT 27 K/uL (150-450)
[2024-03-23] VITALS (17 sets, daily range): BP systolic 120–148; BP diastolic 51–94; O2SAT 95–97
[2024-03-23 08:44] LABS: HEMATOCRIT 47.9 % (36.0-45.00); HEMOGLOBIN 16.3 g/dL (12.0-15.00); MEAN CELL VOLUME 95.4 fL (80.00-100.00); MEAN CORPUSCULAR HEMOGLOBIN 32.5 pg (27.00-32.0); MEAN CORPUSCULAR HGB CONC 34.1 g/dl (32.0-36.0); RED BLOOD COUNT 5.02 M/uL (4.00-6.00); RED CELL DISTRIBUTION WIDTH 17.4 % (11.5-14.5)
[2024-03-23 08:52] LABS: PLATELET COUNT 60 K/uL (150-450)
[2024-03-23 08:59] LABS: ABG PH 7.422 (7.35-7.45); ABG PO2 90.2 mmHg (80-100); ABG pCO2 40.3 mmHg (35-45); BASE EXCESS 1.2 mmol/l; BICARBONATE 25.6 mmol/l (23-25); SaO2 97.1 %; Tco2 26.9 mmol/l
[2024-03-23 08:59] LABS: INR 1.24; PARTIAL THROMBOPLASTIN TIME 26.9 SECONDS (22.0-34.0)
[2024-03-23] MEDS ORDERED: FUROsemide 20 MG/2 ML VIAL IV SCH (09:00)
[2024-03-23] MEDS ORDERED: INSULIN NPH HUMAN ISOPHANE 1,000 UNITS/10 ML UNITS SUBCUTANEO SCH (09:00)
[2024-03-23] MEDS ORDERED: METOPROLOL SUCCINATE 50 MG TAB.SR.24H PO SCH (09:00)
[2024-03-23 09:08] LABS: allen test SATISFACTORY; o2 50 %; puncture site RADIAL RIGHT
[2024-03-23 09:42] LABS: PROTHROMBIN TIME 13.3 SECONDS (9.0-11.5)
[2024-03-23 10:22] LABS: ALBUMIN 2.9 gm/dL (3.4-5.0); CALCIUM 8.4 mg/dL (8.5-10.1); CREATININE SERUM 2.06 mg/dL (0.55-1.02); GFR 23.29; POTASSIUM 3.3 mEq/L (3.5-5.1); TOTAL PROTEIN 5.9 gm/dL (6.4-8.2)
[2024-03-23] MEDS ORDERED: DIPHENHYDRAMINE HCL 50 MG/ML VIAL 1ML IV PRN (10:30)
[2024-03-23] MEDS ORDERED: CALCIUM GLUCONATE 100 MG/ML VIAL IV PRN (10:30)
[2024-03-23 10:34] LABS: PHOSPHOROUS 4.5 mg/dL (2.5-4.9)
[2024-03-23] MEDS ORDERED: ANIDULAFUNGIN 100 MG VIAL IV SCH (12:00)
[2024-03-23] MEDS ORDERED: POTASSIUM CHLORIDE IN WATER 100 ML IV NR (15:30)
[2024-03-23 18:32] LABS: HEMATOCRIT 48.9 % (36.0-45.00); HEMOGLOBIN 16.3 g/dL (12.0-15.00); MEAN CELL VOLUME 93.8 fL (80.00-100.00); MEAN CORPUSCULAR HEMOGLOBIN 31.3 pg (27.00-32.0); MEAN CORPUSCULAR HGB CONC 33.4 g/dl (32.0-36.0); RED BLOOD COUNT 5.21 M/uL (4.00-6.00); RED CELL DISTRIBUTION WIDTH 16.5 % (11.5-14.5)
[2024-03-23 18:46] LABS: INR 1.25; PARTIAL THROMBOPLASTIN TIME 27.3 SECONDS (22.0-34.0); PROTHROMBIN TIME 13.4 SECONDS (9.0-11.5)
[2024-03-23 18:47] LABS: CALCIUM 8.5 mg/dL (8.5-10.1)
[2024-03-23 18:53] LABS: CALCIUM 8.5 mg/dL (8.5-10.1); CREATININE SERUM 1.96 mg/dL (0.55-1.02); GFR 24.66; POTASSIUM 3.59 mEq/L (3.5-5.1)
[2024-03-23 19:02] LABS: PLATELET COUNT 21 K/uL (150-450)
[2024-03-24 04:00] VITALS: BP 122/80; O2SAT 97
[2024-03-24 06:34] LABS: HEMATOCRIT 44.4 % (36.0-45.00); HEMOGLOBIN 15.7 g/dL (12.0-15.00); MEAN CELL VOLUME 91.2 fL (80.00-100.00); MEAN CORPUSCULAR HEMOGLOBIN 32.3 pg (27.00-32.0); MEAN CORPUSCULAR HGB CONC 35.4 g/dl (32.0-36.0); RED BLOOD COUNT 4.87 M/uL (4.00-6.00); RED CELL DISTRIBUTION WIDTH 15.9 % (11.5-14.5)
[2024-03-24 07:25] LABS: PLATELET COUNT 15 K/uL (150-450)
[2024-03-24 07:34] VITALS: BP 149/86; O2SAT 96
[2024-03-24 08:14] LABS: ALBUMIN 1.1 gm/dL (3.4-5.0); BILIRUBIN TOTAL 0.35 mg/dL (0.3-1.2); CALCIUM 7.6 mg/dL (8.5-10.1); CREATININE SERUM 3.51 mg/dL (0.55-1.02); GFR 12.59; GLOBULINA 2.7 G/DL (2.4-3.5); POTASSIUM 3.8 mEq/L (3.5-5.1); TOTAL PROTEIN 3.8 gm/dL (6.4-8.2)
[2024-03-24] MEDS ORDERED: hydrALAZINE HCL 20 MG VIAL IV PRN (08:50)
[2024-03-24] MEDS ORDERED: DOXAZOSIN MESYLATE 4 MG TABLET PO SCH (09:00)
[2024-03-24] MEDS ORDERED: hydrALAZINE HCL 50 MG TABLET PO SCH (09:00)
[2024-03-24] MEDS ORDERED: COLLAGENASE CLOSTRIDIUM HIST. 30 GM TUBE TOP SCH (09:00)
[2024-03-24] MEDS ORDERED: METOPROLOL SUCCINATE 100 MG TAB.SR.24H PO SCH (09:00)
[2024-03-24] MEDS ORDERED: hydrALAZINE HCL 25 MG TABLET PO SCH (09:00)
[2024-03-24 10:32] LABS: ABG PH 7.472 (7.35-7.45); ABG PO2 87.5 mmHg (80-100); BASE EXCESS 1.8 mmol/l; SaO2 97.4 %; Tco2 26.1 mmol/l
[2024-03-24] MEDS ORDERED: HEPARIN SODIUM,PORCINE 5,000 UNITS/ML VIAL ONE (11:43)
[2024-03-24 12:00] VITALS: BP 134/84; O2SAT 95
[2024-03-24 12:28] LABS: o2 50 %
[2024-03-24 12:32] LABS: allen test SATISFACTORY; puncture site RADIAL RIGHT
[2024-03-24 16:00] VITALS: BP 150/86; O2SAT 95
[2024-03-24 20:00] VITALS: BP 113/75; O2SAT 97
[2024-03-24 23:22] LABS: HEMATOCRIT 45.1 % (36.0-45.00); HEMOGLOBIN 15.3 g/dL (12.0-15.00); MEAN CORPUSCULAR HEMOGLOBIN 31.6 pg (27.00-32.0); RED BLOOD COUNT 4.85 M/uL (4.00-6.00); RED CELL DISTRIBUTION WIDTH 15.8 % (11.5-14.5)
[2024-03-24 23:25] VITALS: BP 147/74; O2SAT 96
[2024-03-24 23:43] LABS: CALCIUM 8.4 mg/dL (8.5-10.1); MAGNESIUM 1.6 mg/dL (1.8-2.4)
[2024-03-25] VITALS (10 sets, daily range): BP systolic 110–155; BP diastolic 61–92; O2SAT 96–97
[2024-03-25 00:23] LABS: PLATELET COUNT 9 K/uL (150-450)
[2024-03-25 00:44] LABS: INR 1.19; PARTIAL THROMBOPLASTIN TIME 27.6 SECONDS (22.0-34.0); PROTHROMBIN TIME 12.8 SECONDS (9.0-11.5)
[2024-03-25 01:59] LABS: ob NEGATIVE (NEGATIVE)
[2024-03-25 06:45] LABS: ALBUMIN 2.9 gm/dL (3.4-5.0); BILIRUBIN TOTAL 1.89 mg/dL (0.3-1.2); CALCIUM 8.6 mg/dL (8.5-10.1); CREATININE SERUM 1.4 mg/dL (0.55-1.02); GFR 36.37; GLOBULINA 2.7 G/DL (2.4-3.5); POTASSIUM 3.38 mEq/L (3.5-5.1); TOTAL PROTEIN 5.6 gm/dL (6.4-8.2)
[2024-03-25 07:05] LABS: HEMATOCRIT 42.2 % (36.0-45.00); HEMOGLOBIN 14.4 g/dL (12.0-15.00); MEAN CELL VOLUME 92.8 fL (80.00-100.00); MEAN CORPUSCULAR HEMOGLOBIN 31.7 pg (27.00-32.0); MEAN CORPUSCULAR HGB CONC 34.1 g/dl (32.0-36.0); RED BLOOD COUNT 4.55 M/uL (4.00-6.00); RED CELL DISTRIBUTION WIDTH 15.7 % (11.5-14.5)
[2024-03-25 07:09] LABS: PLATELET COUNT 63 K/uL (150-450)
[2024-03-25] MEDS ORDERED: DOXAZOSIN MESYLATE 4 MG TABLET PO SCH (09:00)
[2024-03-25] MEDS ORDERED: FUROsemide 20 MG/2 ML VIAL IV SCH (09:00)
[2024-03-25] MEDS ORDERED: MEROPENEM 500 MG/VIAL VIAL IV SCH (13:00)
[2024-03-25] MEDS ORDERED: POTASSIUM CHLORIDE IN WATER 100 ML IV NR (14:30)
[2024-03-25 22:09] LABS: HEMATOCRIT 41.6 % (36.0-45.00); HEMOGLOBIN 14.1 g/dL (12.0-15.00); MEAN CELL VOLUME 93.3 fL (80.00-100.00); MEAN CORPUSCULAR HEMOGLOBIN 31.5 pg (27.00-32.0); MEAN CORPUSCULAR HGB CONC 33.8 g/dl (32.0-36.0); RED BLOOD COUNT 4.46 M/uL (4.00-6.00); RED CELL DISTRIBUTION WIDTH 15.7 % (11.5-14.5)
[2024-03-25 22:21] LABS: INR 1.23; PARTIAL THROMBOPLASTIN TIME 28.5 SECONDS (22.0-34.0); PROTHROMBIN TIME 13.2 SECONDS (9.0-11.5)
[2024-03-25 22:34] LABS: PLATELET COUNT 24 K/uL (150-450)
[2024-03-26] MEDS ORDERED: MAGNESIUM SULFATE IN WATER 50 ML IV SCH
[2024-03-26 04:00] VITALS: BP 135/71; O2SAT 99
[2024-03-26 06:45] LABS: HEMATOCRIT 40.4 % (36.0-45.00); HEMOGLOBIN 13.7 g/dL (12.0-15.00); MEAN CELL VOLUME 92.4 fL (80.00-100.00); MEAN CORPUSCULAR HEMOGLOBIN 31.4 pg (27.00-32.0); RED BLOOD COUNT 4.37 M/uL (4.00-6.00); RED CELL DISTRIBUTION WIDTH 15.3 % (11.5-14.5)
[2024-03-26 07:00] VITALS: BP 135/76; O2SAT 98
[2024-03-26 07:16] LABS: ALBUMIN 2.8 gm/dL (3.4-5.0); BILIRUBIN TOTAL 1.53 mg/dL (0.3-1.2); CALCIUM 8.3 mg/dL (8.5-10.1); CREATININE SERUM 1.5 mg/dL (0.55-1.02); GFR 33.58; GLOBULINA 2.5 G/DL (2.4-3.5); POTASSIUM 3.33 mEq/L (3.5-5.1); TOTAL PROTEIN 5.3 gm/dL (6.4-8.2)
[2024-03-26 08:59] LABS: PLATELET COUNT 15 K/uL (150-450)
[2024-03-26] MEDS ORDERED: AMLODIPINE BESYLATE 5 MG TABLET PO SCH (09:00)
[2024-03-26 09:33] LABS: PLATELET ESTIMATE DECREASED (NORMAL)
[2024-03-26] MEDS ORDERED: MAGNESIUM SULFATE IN WATER 50 ML IV STA (09:43)
[2024-03-26 12:00] VITALS: BP 120/75; O2SAT 97
[2024-03-26 15:34] VITALS: BP 136/76; O2SAT 96
[2024-03-26 17:44] LABS: HEMOGLOBIN 13.5 g/dL (12.0-15.00); MEAN CORPUSCULAR HEMOGLOBIN 31.4 pg (27.00-32.0); MEAN CORPUSCULAR HGB CONC 33.8 g/dl (32.0-36.0); PLATELET COUNT 36 K/uL (150-450); RED CELL DISTRIBUTION WIDTH 15.2 % (11.5-14.5)
[2024-03-26 18:11] LABS: CALCIUM 8.3 mg/dL (8.5-10.1); MAGNESIUM 2.2 mg/dL (1.8-2.4)
[2024-03-26 18:17] LABS: INR 1.22; PROTHROMBIN TIME 13.1 SECONDS (9.0-11.5)
[2024-03-26 18:19] LABS: PARTIAL THROMBOPLASTIN TIME 40.2 SECONDS (22.0-34.0)
[2024-03-26 20:00] VITALS: BP 110/77; O2SAT 98
[2024-03-26] MEDS ORDERED: VANCOMYCIN HCL 500 MG VIAL IV SCH (21:00)
[2024-03-26] MEDS ORDERED: POTASSIUM CHLORIDE IN WATER 100 ML IV ONE (21:15)
[2024-03-27] VITALS: BP 131/72; O2SAT 98
[2024-03-27 04:00] VITALS: BP 140/84; O2SAT 97
[2024-03-27 07:45] VITALS: BP 136/83; O2SAT 99
[2024-03-27 08:35] LABS: INR 1.17; PARTIAL THROMBOPLASTIN TIME 28.1 SECONDS (22.0-34.0); PROTHROMBIN TIME 12.6 SECONDS (9.0-11.5)
[2024-03-27 08:52] LABS: ALBUMIN 2.8 gm/dL (3.4-5.0); CALCIUM 8.4 mg/dL (8.5-10.1); CREATININE SERUM 1.05 mg/dL (0.55-1.02); GFR 50.69; MAGNESIUM 1.9 mg/dL (1.8-2.4); PHOSPHOROUS 4.7 mg/dL (2.5-4.9); POTASSIUM 3.83 mEq/L (3.5-5.1)
[2024-03-27 11:59] VITALS: BP 136/75; O2SAT 99
[2024-03-27 12:24] LABS: HEMATOCRIT 39.3 % (36.0-45.00); HEMOGLOBIN 13.3 g/dL (12.0-15.00); MEAN CELL VOLUME 93.4 fL (80.00-100.00); MEAN CORPUSCULAR HEMOGLOBIN 31.5 pg (27.00-32.0); MEAN CORPUSCULAR HGB CONC 33.8 g/dl (32.0-36.0); RED BLOOD COUNT 4.21 M/uL (4.00-6.00); RED CELL DISTRIBUTION WIDTH 15.4 % (11.5-14.5)
[2024-03-27 12:56] LABS: CALCIUM 8.8 mg/dL (8.5-10.1); MAGNESIUM 1.9 mg/dL (1.8-2.4)
[2024-03-27 13:04] LABS: INR 1.14; PROTHROMBIN TIME 12.3 SECONDS (9.0-11.5)
[2024-03-27 13:09] LABS: PLATELET COUNT 9 K/uL (150-450)
[2024-03-27 13:15] LABS: PARTIAL THROMBOPLASTIN TIME 67.8 SECONDS (22.0-34.0)
[2024-03-27 15:39] VITALS: BP 115/67; O2SAT 98
[2024-03-27 19:31] VITALS: BP 144/89; O2SAT 99
[2024-03-28 01:26] LABS: INR 1.15; PARTIAL THROMBOPLASTIN TIME 27.6 SECONDS (22.0-34.0); PROTHROMBIN TIME 12.4 SECONDS (9.0-11.5)
[2024-03-28 01:34] LABS: HEMATOCRIT 34.4 % (36.0-45.00); HEMOGLOBIN 12.2 g/dL (12.0-15.00); MEAN CELL VOLUME 90.6 fL (80.00-100.00); MEAN CORPUSCULAR HGB CONC 35.4 g/dl (32.0-36.0); RED CELL DISTRIBUTION WIDTH 15.4 % (11.5-14.5)
[2024-03-28 01:47] LABS: PLATELET COUNT 52 K/uL (150-450)
[2024-03-28 04:00] VITALS: BP 139/74; O2SAT 96
[2024-03-28 07:00] VITALS: BP 128/69; O2SAT 96
[2024-03-28 12:00] VITALS: BP 132/62; O2SAT 97
[2024-03-28] MEDS ORDERED: DEXTROSE 5 %-0.45 % SOD CHLORD 1,000 ML IV SCH (12:30)
[2024-03-28 15:15] VITALS: BP 119/64; O2SAT 97
[2024-03-28] MEDS ORDERED: DEXAMETHASONE SODIUM PHOSP/PF 10 MG/ML VIAL IV SCH (18:47)
[2024-03-28] MEDS ORDERED: DEXAMETHASONE SODIUM PHOSPHATE 4 MG/ML VIAL ONE (19:07)
[2024-03-28 20:08] VITALS: BP 124/62; O2SAT 98
[2024-03-28 23:16] VITALS: BP 132/62; O2SAT 98
[2024-03-29 04:03] VITALS: BP 134/73; O2SAT 100
[2024-03-29 06:55] LABS: HEMATOCRIT 37.7 % (36.0-45.00); HEMOGLOBIN 12.8 g/dL (12.0-15.00); MEAN CELL VOLUME 92.9 fL (80.00-100.00); MEAN CORPUSCULAR HEMOGLOBIN 31.6 pg (27.00-32.0); MEAN CORPUSCULAR HGB CONC 34.1 g/dl (32.0-36.0); RED BLOOD COUNT 4.06 M/uL (4.00-6.00); RED CELL DISTRIBUTION WIDTH 15.1 % (11.5-14.5)
[2024-03-29 07:23] LABS: ALBUMIN 2.8 gm/dL (3.4-5.0); BILIRUBIN TOTAL 1.92 mg/dL (0.3-1.2); CALCIUM 8.1 mg/dL (8.5-10.1); CREATININE SERUM 1.05 mg/dL (0.55-1.02); GFR 50.69; GLOBULINA 2.7 G/DL (2.4-3.5); TOTAL PROTEIN 5.5 gm/dL (6.4-8.2)
[2024-03-29 07:34] LABS: POTASSIUM 2.78 mEq/L (3.5-5.1)
[2024-03-29 07:36] VITALS: BP 132/71; O2SAT 98
[2024-03-29 08:13] LABS: PLATELET ESTIMATE DECREASED (NORMAL)
[2024-03-29 08:16] LABS: PLATELET COUNT 12 K/uL (150-450)
[2024-03-29] MEDS ORDERED: POTASSIUM CHLORIDE IN WATER 40 MEQ/100 ML PIGGYBAG IV NR (08:30)
[2024-03-29 12:00] VITALS: BP 123/76; O2SAT 99
[2024-03-29] MEDS ORDERED: TRIAMCINOLONE ACETONIDE 5 GM TUBE TOP SCH (13:00)
[2024-03-29 15:02] VITALS: BP 126/66; O2SAT 100
[2024-03-29] MEDS ORDERED: DIPHENHYDRAMINE HCL 50 MG/ML VIAL 1ML IV PRN (18:45)
[2024-03-29] MEDS ORDERED: CALCIUM GLUCONATE 100 MG/ML VIAL IV PRN (18:45)
[2024-03-29 20:00] VITALS: BP 118/64; O2SAT 100
[2024-03-29] MEDS ORDERED: VANCOMYCIN HCL 500 MG VIAL IV SCH (21:00)
[2024-03-29 23:27] VITALS: BP 133/72; O2SAT 100
[2024-03-30 04:13] VITALS: BP 130/67; O2SAT 100
[2024-03-30 06:59] VITALS: BP 141/66; O2SAT 100
[2024-03-30 07:07] LABS: HEMATOCRIT 35.9 % (36.0-45.00); HEMOGLOBIN 12.6 g/dL (12.0-15.00); MEAN CELL VOLUME 91.4 fL (80.00-100.00); RED BLOOD COUNT 3.93 M/uL (4.00-6.00); RED CELL DISTRIBUTION WIDTH 15.8 % (11.5-14.5)
[2024-03-30 07:26] LABS: ALBUMIN 2.8 gm/dL (3.4-5.0); BILIRUBIN TOTAL 1.68 mg/dL (0.3-1.2); CALCIUM 7.9 mg/dL (8.5-10.1); CREATININE SERUM 1.04 mg/dL (0.55-1.02); GFR 51.25; GLOBULINA 2.8 G/DL (2.4-3.5); POTASSIUM 3.07 mEq/L (3.5-5.1); TOTAL PROTEIN 5.6 gm/dL (6.4-8.2)
[2024-03-30 07:27] LABS: MAGNESIUM 1.4 mg/dL (1.8-2.4)
[2024-03-30] MEDS ORDERED: DEXAMETHASONE SODIUM PHOSP/PF 10 MG/ML VIAL IV NR (09:00)
[2024-03-30] MEDS ORDERED: SPIRONOLACTONE 25 MG TABLET PO SCH (09:00)
[2024-03-30 09:07] LABS: PLATELET COUNT 10 K/uL (150-450)
[2024-03-30] MEDS ORDERED: POTASSIUM CHLORIDE IN WATER 40 MEQ/100 ML PIGGYBAG IV SCH ×2 (12:00→17:00)
[2024-03-30 12:37] VITALS: BP 136/88; O2SAT 99
[2024-03-30 15:21] VITALS: BP 135/89; O2SAT 100
[2024-03-30] MEDS ORDERED: MAGNESIUM SULFATE IN WATER 2 GM/50 ML PIGGYBAG IV NR (17:00)
[2024-03-30] MEDS ORDERED: POTASSIUM CHLORIDE IN WATER 40 MEQ/100 ML PIGGYBAG IV ONE (19:43)
[2024-03-30 20:00] VITALS: BP 143/73; O2SAT 100
[2024-03-30 20:28] LABS: HEMATOCRIT 35.3 % (36.0-45.00); HEMOGLOBIN 12.1 g/dL (12.0-15.00); MEAN CELL VOLUME 91.6 fL (80.00-100.00); MEAN CORPUSCULAR HEMOGLOBIN 31.5 pg (27.00-32.0); MEAN CORPUSCULAR HGB CONC 34.4 g/dl (32.0-36.0); RED BLOOD COUNT 3.85 M/uL (4.00-6.00); RED CELL DISTRIBUTION WIDTH 15.3 % (11.5-14.5)
[2024-03-30 20:42] LABS: CALCIUM 8.3 mg/dL (8.5-10.1); MAGNESIUM 2.3 mg/dL (1.8-2.4)
[2024-03-30 20:44] LABS: INR 1.11; PARTIAL THROMBOPLASTIN TIME 26.8 SECONDS (22.0-34.0)
[2024-03-30 20:49] LABS: PLATELET COUNT 7 K/uL (150-450)
[2024-03-30 23:51] VITALS: BP 144/75; O2SAT 100
[2024-03-31 04:07] VITALS: BP 147/73; O2SAT 99
[2024-03-31 06:51] LABS: HEMATOCRIT 32.9 % (36.0-45.00); HEMOGLOBIN 11.2 g/dL (12.0-15.00); MEAN CELL VOLUME 93.7 fL (80.00-100.00); MEAN CORPUSCULAR HGB CONC 34.1 g/dl (32.0-36.0); RED BLOOD COUNT 3.51 M/uL (4.00-6.00); RED CELL DISTRIBUTION WIDTH 15.1 % (11.5-14.5)
[2024-03-31 06:54] VITALS: BP 146/74; O2SAT 100
[2024-03-31 07:25] LABS: ALBUMIN 2.8 gm/dL (3.4-5.0); CALCIUM 8.5 mg/dL (8.5-10.1); CREATININE SERUM 1.04 mg/dL (0.55-1.02); GFR 51.25; MAGNESIUM 1.8 mg/dL (1.8-2.4); PHOSPHOROUS 3.5 mg/dL (2.5-4.9); POTASSIUM 3.98 mEq/L (3.5-5.1)
[2024-03-31 07:35] LABS: PLATELET COUNT 7 K/uL (150-450)
[2024-03-31 12:00] VITALS: BP 149/72; O2SAT 99
[2024-03-31 15:14] LABS: HEMATOCRIT 30.4 % (36.0-45.00); HEMOGLOBIN 10.3 g/dL (12.0-15.00); MEAN CORPUSCULAR HEMOGLOBIN 31.8 pg (27.00-32.0); MEAN CORPUSCULAR HGB CONC 33.8 g/dl (32.0-36.0); RED BLOOD COUNT 3.23 M/uL (4.00-6.00); RED CELL DISTRIBUTION WIDTH 15.4 % (11.5-14.5)
[2024-03-31 15:33] LABS: INR 1.21
[2024-03-31 15:43] LABS: CALCIUM 8.4 mg/dL (8.5-10.1); MAGNESIUM 1.7 mg/dL (1.8-2.4)
[2024-03-31 15:44] VITALS: BP 151/78; O2SAT 100
[2024-03-31 16:01] LABS: PLATELET COUNT 6 K/uL (150-450)
[2024-03-31] MEDS ORDERED: ACETAZOLAMIDE 250 MG TABLET PO SCH (17:00)
[2024-03-31 23:04] VITALS: BP 156/75; O2SAT 100
[2024-04-01 04:00] VITALS: BP 166/81; O2SAT 100
[2024-04-01 06:52] LABS: ALBUMIN 2.7 gm/dL (3.4-5.0); CALCIUM 8.4 mg/dL (8.5-10.1); CREATININE SERUM 1.31 mg/dL (0.55-1.02); GFR 39.26; MAGNESIUM 1.5 mg/dL (1.8-2.4); PHOSPHOROUS 3.7 mg/dL (2.5-4.9); POTASSIUM 3.26 mEq/L (3.5-5.1)
[2024-04-01 06:55] VITALS: BP 154/74; O2SAT 99
[2024-04-01] MEDS ORDERED: AMLODIPINE BESYLATE 10 MG TABLET PO SCH (09:00)
[2024-04-01] MEDS ORDERED: ACETAZOLAMIDE SODIUM 500 MG VIAL IV SCH (09:00)
[2024-04-01 12:00] VITALS: BP 153/73; O2SAT 100
[2024-04-01 14:28] LABS: HEMATOCRIT 28.4 % (36.0-45.00); MEAN CELL VOLUME 94.6 fL (80.00-100.00); MEAN CORPUSCULAR HGB CONC 33.5 g/dl (32.0-36.0); RED BLOOD COUNT 3.01 M/uL (4.00-6.00); RED CELL DISTRIBUTION WIDTH 15.4 % (11.5-14.5)
[2024-04-01 14:33] LABS: CALCIUM 8.7 mg/dL (8.5-10.1); MAGNESIUM 1.6 mg/dL (1.8-2.4)
[2024-04-01 14:49] LABS: HEMOGLOBIN 9.5 g/dL (12.0-15.00); MEAN CORPUSCULAR HEMOGLOBIN 31.5 pg (27.00-32.0)
[2024-04-01 15:01] LABS: INR 1.18
[2024-04-01 15:03] LABS: PARTIAL THROMBOPLASTIN TIME 42.6 SECONDS (22.0-34.0); PROTHROMBIN TIME 12.7 SECONDS (9.0-11.5)
[2024-04-01 15:41] VITALS: BP 153/73; O2SAT 100
[2024-04-01 15:41] LABS: PLATELET COUNT 7 K/uL (150-450)
[2024-04-01] MEDS ORDERED: PANTOPRAZOLE SODIUM 80 MG in 0.9 % SODIUM CHLORIDE 100 ML IV SCH ×2 (15:45→18:00)
[2024-04-01] MEDS ORDERED: PANTOPRAZOLE SODIUM 40 MG/VIAL VIAL IV PUSH SCH (17:00)
[2024-04-01] MEDS ORDERED: POTASSIUM CHLORIDE IN WATER 100 ML IV NR (17:00)
[2024-04-01] MEDS ORDERED: FAMOTIDINE/PF 20 MG/2 ML VIAL IV SCH (17:00)
[2024-04-01] MEDS ORDERED: DEXTROSE 5 %-0.45 % SOD CHLORD 1,000 ML IV SCH (17:15)
[2024-04-01] MEDS ORDERED: MAGNESIUM SULFATE IN WATER 2 GM/50 ML PIGGYBAG IV NR (17:15)
[2024-04-01 20:15] VITALS: BP 144/77; O2SAT 100
[2024-04-01 23:28] VITALS: BP 152/73; O2SAT 100
[2024-04-02 04:00] VITALS: BP 154/72; O2SAT 96
[2024-04-02 06:01] LABS: ALBUMIN 3.1 gm/dL (3.4-5.0); CREATININE SERUM 1.41 mg/dL (0.55-1.02); GFR 36.07; PHOSPHOROUS 4.7 mg/dL (2.5-4.9); POTASSIUM 3.21 mEq/L (3.5-5.1)
[2024-04-02 06:49] LABS: HEMATOCRIT 28.9 % (36.0-45.00); MEAN CELL VOLUME 92.5 fL (80.00-100.00); MEAN CORPUSCULAR HEMOGLOBIN 31.9 pg (27.00-32.0); MEAN CORPUSCULAR HGB CONC 34.5 g/dl (32.0-36.0); RED BLOOD COUNT 3.12 M/uL (4.00-6.00); RED CELL DISTRIBUTION WIDTH 15.1 % (11.5-14.5)
[2024-04-02 07:13] VITALS: BP 164/87; O2SAT 97
[2024-04-02 07:23] LABS: PLATELET COUNT 8 K/uL (150-450)
[2024-04-02] MEDS ORDERED: PANTOPRAZOLE SODIUM 40 MG/VIAL VIAL IV PUSH SCH (09:00)
[2024-04-02 12:00] VITALS: BP 154/83; O2SAT 100
[2024-04-02] MEDS ORDERED: POTASSIUM CHLORIDE IN WATER 100 ML IV NR (14:39)
[2024-04-02] MEDS ORDERED: DEXTROSE 5 % IN WATER 1,000 ML IV SCH (14:45)
[2024-04-02 14:59] LABS: INR 1.21
[2024-04-02 15:00] LABS: PARTIAL THROMBOPLASTIN TIME 67.1 SECONDS (22.0-34.0)
[2024-04-02 15:12] LABS: CALCIUM 9.2 mg/dL (8.5-10.1); MAGNESIUM 2.1 mg/dL (1.8-2.4)
[2024-04-02 16:24] VITALS: BP 159/78; O2SAT 100
[2024-04-02 17:41] LABS: HEMATOCRIT 25.3 % (36.0-45.00); MEAN CELL VOLUME 93.5 fL (80.00-100.00); RED CELL DISTRIBUTION WIDTH 15.3 % (11.5-14.5)
[2024-04-02 17:43] LABS: HEMOGLOBIN 8.6 g/dL (12.0-15.00); MEAN CORPUSCULAR HEMOGLOBIN 31.8 pg (27.00-32.0); PLATELET COUNT 52 K/uL (150-450)
[2024-04-02 20:24] VITALS: BP 150/73; O2SAT 100
[2024-04-02] MEDS ORDERED: hydrALAZINE HCL 20 MG VIAL ONE (21:49)
[2024-04-02 23:20] VITALS: BP 161/60; O2SAT 99
[2024-04-03 04:00] VITALS: BP 152/74; O2SAT 96
[2024-04-03 07:34] VITALS: BP 137/77; O2SAT 99
[2024-04-03 08:00] LABS: CALCIUM 8.5 mg/dL (8.5-10.1); CREATININE SERUM 1.37 mg/dL (0.55-1.02); GFR 37.29; MAGNESIUM 1.7 mg/dL (1.8-2.4); POTASSIUM 3.18 mEq/L (3.5-5.1)
[2024-04-03 08:12] LABS: HEMATOCRIT 25.2 % (36.0-45.00); MEAN CORPUSCULAR HGB CONC 33.6 g/dl (32.0-36.0); RED BLOOD COUNT 2.68 M/uL (4.00-6.00); RED CELL DISTRIBUTION WIDTH 15.3 % (11.5-14.5)
[2024-04-03 08:52] LABS: MEAN CORPUSCULAR HEMOGLOBIN 31.7 pg (27.00-32.0)
[2024-04-03 09:02] LABS: HEMOGLOBIN 8.5 g/dL (12.0-15.00); PLATELET COUNT 38 K/uL (150-450)
[2024-04-03 12:00] VITALS: BP 143/71; O2SAT 100
[2024-04-03] MEDS ORDERED: FUROsemide 20 MG/2 ML VIAL IV SCH (14:15)
[2024-04-03] MEDS ORDERED: POTASSIUM CHLORIDE IN WATER 100 ML IV NR (14:30)
[2024-04-03] MEDS ORDERED: MAGNESIUM SULFATE/D5W 100 ML IV NR (14:30)
[2024-04-03 15:21] VITALS: BP 150/70; O2SAT 100
[2024-04-03 17:37] LABS: MEAN CELL VOLUME 92.8 fL (80.00-100.00); MEAN CORPUSCULAR HGB CONC 33.5 g/dl (32.0-36.0); RED BLOOD COUNT 2.59 M/uL (4.00-6.00); RED CELL DISTRIBUTION WIDTH 15.5 % (11.5-14.5)
[2024-04-03 17:39] LABS: MEAN CORPUSCULAR HEMOGLOBIN 31.2 pg (27.00-32.0)
[2024-04-03 17:41] LABS: HEMOGLOBIN 8.1 g/dL (12.0-15.00); PLATELET COUNT 27 K/uL (150-450)
[2024-04-03 18:06] LABS: INR 1.19; PARTIAL THROMBOPLASTIN TIME 30.6 SECONDS (22.0-34.0); PROTHROMBIN TIME 12.8 SECONDS (9.0-11.5)
[2024-04-03 22:14] LABS: ALBUMIN 2.9 gm/dL (3.4-5.0); BILIRUBIN TOTAL 1.42 mg/dL (0.3-1.2); CALCIUM 8.1 mg/dL (8.5-10.1); CREATININE SERUM 1.33 mg/dL (0.55-1.02); GFR 38.58; GLOBULINA 2.3 G/DL (2.4-3.5); MAGNESIUM 2.2 mg/dL (1.8-2.4); POTASSIUM 3.21 mEq/L (3.5-5.1); TOTAL PROTEIN 5.2 gm/dL (6.4-8.2)
[2024-04-03 23:15] VITALS: BP 160/73; O2SAT 96
[2024-04-04 04:00] VITALS: BP 161/74; O2SAT 96
[2024-04-04 07:22] VITALS: BP 157/69; O2SAT 96
[2024-04-04] MEDS ORDERED: POTASSIUM CHLORIDE IN WATER 100 ML IV NR (11:15)
[2024-04-04 12:00] VITALS: BP 149/60; O2SAT 96
[2024-04-04 15:25] VITALS: BP 131/58; O2SAT 95
[2024-04-04 15:50] VITALS: BP 147/72; O2SAT 95
[2024-04-04 16:00] LABS: HEMATOCRIT 32.5 % (36.0-45.00); HEMOGLOBIN 11.2 g/dL (12.0-15.00); MEAN CELL VOLUME 89.7 fL (80.00-100.00); MEAN CORPUSCULAR HEMOGLOBIN 30.8 pg (27.00-32.0); MEAN CORPUSCULAR HGB CONC 34.3 g/dl (32.0-36.0); RED BLOOD COUNT 3.62 M/uL (4.00-6.00); RED CELL DISTRIBUTION WIDTH 15.8 % (11.5-14.5)
[2024-04-04 16:24] LABS: PLATELET COUNT 14 K/uL (150-450)
[2024-04-04] MEDS ORDERED: AA 5 %/CALCIUM/LYTES/DEXT 20 % 2,000 ML CENTRAL SCH (17:00)
[2024-04-04 17:57] LABS: CALCIUM 7.7 mg/dL (8.5-10.1); CHOL HDL RATIO 2.5 (0-5.0); CREATININE SERUM 1.45 mg/dL (0.55-1.02); GFR 34.92; POTASSIUM 3.04 mEq/L (3.5-5.1)
[2024-04-04] MEDS ORDERED: VANCOMYCIN HCL 500 MG VIAL IV SCH (21:00)
[2024-04-04 23:21] VITALS: BP 148/74; O2SAT 100
[2024-04-05 07:10] VITALS: BP 160/63; O2SAT 100
[2024-04-05] MEDS ORDERED: hydrALAZINE HCL 50 MG TABLET PO SCH ×2 (09:00→17:00)
[2024-04-05] MEDS ORDERED: hydrALAZINE HCL 50 MG,hydrALAZINE HCL 25 MG PO SCH (09:00)
[2024-04-05] MEDS ORDERED: MINERAL OIL 30 ML BLIST.PACK PO NR (09:15)
[2024-04-05] MEDS ORDERED: MAGNESIUM HYDROXIDE 30 ML BLIST.PACK PO NR (09:15)
[2024-04-05] MEDS ORDERED: LACTULOSE 20 G/30 ML BLIST.PACK NGT NR (09:15)
[2024-04-05] MEDS ORDERED: DEXTROSE 5 %-0.45 % SOD CHLORD 1,000 ML IV SCH (09:15)
[2024-04-05 10:39] LABS: URINE APPEARANCE Cloudy; URINE BILIRRUBIN Negative (NEGATIVE); URINE BLOOD Small; URINE COLOR Yellow; URINE KETONE Negative (NEGATIVE); URINE LEUKOCYTE Trace; URINE NITRATE Negative; URINE PROTEIN 30 (NEGATIVE); URINE UROBILINOGEN 0.2 E.U./dl
[2024-04-05 10:42] LABS: HEMATOCRIT 36.2 % (36.0-45.00); HEMOGLOBIN 12.2 g/dL (12.0-15.00); MEAN CELL VOLUME 90.5 fL (80.00-100.00); MEAN CORPUSCULAR HEMOGLOBIN 30.6 pg (27.00-32.0); MEAN CORPUSCULAR HGB CONC 33.9 g/dl (32.0-36.0); RED CELL DISTRIBUTION WIDTH 15.3 % (11.5-14.5)
[2024-04-05 10:44] LABS: URINE BACTERIA 157.4 uL (0.0-1933); URINE EPITHELIAL CELLS 15.9 uL (0.0-38.8); URINE RBC 413.4 uL (0.0-20.8); URINE WBC 46.5 uL (0.0-23.2)
[2024-04-05 11:20] LABS: ALBUMIN 2.9 gm/dL (3.4-5.0); BILIRUBIN TOTAL 1.85 mg/dL (0.3-1.2); BILIRUBIN,CONJUGATED 0.39 mg/dL (0.0-0.2); BILIRUBIN,UNCONJUGATED 1.46 mg/dL (0.0-0.6); CALCIUM 7.5 mg/dL (8.5-10.1); CREATININE SERUM 1.25 mg/dL (0.55-1.02); GFR 41.45; TOTAL PROTEIN 5.7 gm/dL (6.4-8.2)
[2024-04-05 11:23] LABS: POTASSIUM 2.66 mEq/L (3.5-5.1)
[2024-04-05 11:24] LABS: PLATELET COUNT 11 K/uL (150-450)
[2024-04-05 12:00] VITALS: BP 127/81; O2SAT 98
[2024-04-05 12:08] LABS: URINE CAST 0.45 uL (0.0-1.40); URINE GLUCOSE 500 MG/DL (NEGATIVE)
[2024-04-05 12:10] LABS: URINE CRYSTALS FEW /HPF
[2024-04-05] MEDS ORDERED: POTASSIUM CHLORIDE IN WATER 100 ML IV SCH (14:00)
[2024-04-05 15:31] VITALS: BP 139/73; O2SAT 100
[2024-04-05 19:59] LABS: ob NEGATIVE (NEGATIVE)
[2024-04-05 20:00] VITALS: BP 116/64; O2SAT 100
[2024-04-05] MEDS ORDERED: VANCOMYCIN HCL 500 MG VIAL IV SCH (21:00)
[2024-04-05 21:57] LABS: HEMATOCRIT 33.3 % (36.0-45.00); HEMOGLOBIN 11.5 g/dL (12.0-15.00); MEAN CELL VOLUME 89.9 fL (80.00-100.00); MEAN CORPUSCULAR HEMOGLOBIN 31.1 pg (27.00-32.0); MEAN CORPUSCULAR HGB CONC 34.5 g/dl (32.0-36.0); RED BLOOD COUNT 3.71 M/uL (4.00-6.00)
[2024-04-05 21:58] LABS: PLATELET COUNT 58 K/uL (150-450)
[2024-04-05 22:06] LABS: INR 1.18; PARTIAL THROMBOPLASTIN TIME 28.2 SECONDS (22.0-34.0); PROTHROMBIN TIME 12.7 SECONDS (9.0-11.5)
[2024-04-06 02:58] VITALS: BP 143/72; O2SAT 98
[2024-04-06] MEDS ORDERED: POTASSIUM CHLORIDE IN WATER 40 MEQ/100 ML PIGGYBAG IV SCH (07:57)
[2024-04-06] MEDS ORDERED: SODIUM CHLORIDE 0.45 % 1,000 ML IV SCH (08:30)
[2024-04-06] MEDS ORDERED: METOPROLOL SUCCINATE 50 MG TAB.SR.24H PO SCH (09:00)
[2024-04-06] MEDS ORDERED: DEXAMETHASONE 4 MG TABLET PO SCH (09:00)
[2024-04-06 09:54] VITALS: BP 175/91; O2SAT 99
[2024-04-06 10:19] LABS: HEMATOCRIT 31.9 % (36.0-45.00); HEMOGLOBIN 11.1 g/dL (12.0-15.00); MEAN CELL VOLUME 89.4 fL (80.00-100.00); MEAN CORPUSCULAR HEMOGLOBIN 31.2 pg (27.00-32.0); MEAN CORPUSCULAR HGB CONC 34.9 g/dl (32.0-36.0); RED BLOOD COUNT 3.57 M/uL (4.00-6.00); RED CELL DISTRIBUTION WIDTH 15.1 % (11.5-14.5)
[2024-04-06 10:20] LABS: PLATELET COUNT 35 K/uL (150-450)
[2024-04-06 11:36] LABS: ALBUMIN 2.8 gm/dL (3.4-5.0); BILIRUBIN TOTAL 1.46 mg/dL (0.3-1.2); CALCIUM 8.1 mg/dL (8.5-10.1); CREATININE SERUM 0.93 mg/dL (0.55-1.02); GFR 58.31; GLOBULINA 2.5 G/DL (2.4-3.5); POTASSIUM 3.87 mEq/L (3.5-5.1); TOTAL PROTEIN 5.3 gm/dL (6.4-8.2)
[2024-04-06 12:17] LABS: PH,URINE 7.5 (5.0-8.0); URINE APPEARANCE Cloudy; URINE BILIRRUBIN Negative (NEGATIVE); URINE BLOOD Trace; URINE COLOR Yellow; URINE GLUCOSE Negative (NEGATIVE); URINE KETONE Negative (NEGATIVE); URINE LEUKOCYTE Trace; URINE NITRATE Negative; URINE PROTEIN 30 (NEGATIVE); URINE UROBILINOGEN 0.2 E.U./dl
[2024-04-06 12:21] LABS: URINE BACTERIA 76.8 uL (0.0-1933); URINE RBC 148.4 uL (0.0-20.8); URINE WBC 46.6 uL (0.0-23.2)
[2024-04-06 19:17] VITALS: BP 160/75; O2SAT 98
[2024-04-07 02:12] VITALS: BP 136/65; O2SAT 99
[2024-04-07 09:07] VITALS: BP 159/86
[2024-04-07 10:50] LABS: HEMOGLOBIN 10.1 g/dL (12.0-15.00); MEAN CELL VOLUME 90.1 fL (80.00-100.00); MEAN CORPUSCULAR HEMOGLOBIN 31.4 pg (27.00-32.0); MEAN CORPUSCULAR HGB CONC 34.8 g/dl (32.0-36.0); RED BLOOD COUNT 3.22 M/uL (4.00-6.00); RED CELL DISTRIBUTION WIDTH 14.8 % (11.5-14.5)
[2024-04-07 10:58] LABS: PLATELET COUNT 37 K/uL (150-450)
[2024-04-07 11:20] LABS: ABG PH 7.426 (7.35-7.45); ABG pCO2 41.3 mmHg (35-45)
[2024-04-07 11:20] LABS: ALBUMIN 2.6 gm/dL (3.4-5.0); BILIRUBIN TOTAL 1.59 mg/dL (0.3-1.2); BILIRUBIN,CONJUGATED 0.34 mg/dL (0.0-0.2); BILIRUBIN,UNCONJUGATED 1.25 mg/dL (0.0-0.6); CALCIUM 8.3 mg/dL (8.5-10.1); CREATININE SERUM 0.86 mg/dL (0.55-1.02); GFR 63.82; GLOBULINA 2.8 G/DL (2.4-3.5); POTASSIUM 3.58 mEq/L (3.5-5.1); TOTAL PROTEIN 5.4 gm/dL (6.4-8.2)
[2024-04-07 11:21] LABS: BICARBONATE 26.6 mmol/l (23-25); SaO2 96.6 %
[2024-04-07 11:22] LABS: Tco2 27.8 mmol/l; o2 21 %
[2024-04-07 11:23] LABS: allen test SATISFACTORY; puncture site RADIAL RIGHT
[2024-04-07 11:45] LABS: MAGNESIUM 1.3 mg/dL (1.8-2.4)
[2024-04-07] MEDS ORDERED: MAGNESIUM SULFATE IN WATER 50 ML IV NR (15:00)
[2024-04-07 18:39] VITALS: BP 145/80; O2SAT 95
[2024-04-08 02:49] VITALS: BP 117/67; O2SAT 98
[2024-04-08] MEDS ORDERED: MAGNESIUM SULFATE IN WATER 50 ML IV SCH (09:00)
[2024-04-08 09:55] VITALS: BP 168/80
[2024-04-08 12:35] LABS: PLT IN CITRATE 28 K/uL (150-450)
[2024-04-08 13:40] LABS: PLATELET COUNT 28 K/uL (150-450)
[2024-04-08] MEDS ORDERED: MAGNESIUM HYDROXIDE PO SCH (14:00)
[2024-04-08] MEDS ORDERED: DIPHENHYDRAMINE PO SCH (14:00)
[2024-04-08] MEDS ORDERED: LIDOCAINE PO SCH (14:00)
[2024-04-08] MEDS ORDERED: MEROPENEM 500 MG/VIAL VIAL IV SCH (14:00)
[2024-04-08 16:35] VITALS: BP 160/70
[2024-04-08] MEDS ORDERED: FLUCONAZOLE IN NACL,ISO-OSM 200 MG/100 ML PIGGYBAG IV NR (17:00)
[2024-04-09 00:37] VITALS: BP 150/77; O2SAT 99
[2024-04-09 05:53] LABS: ALBUMIN 2.8 gm/dL (3.4-5.0); BILIRUBIN TOTAL 1.15 mg/dL (0.3-1.2); CALCIUM 8.6 mg/dL (8.5-10.1); CREATININE SERUM 0.74 mg/dL (0.55-1.02); GFR 75.9; GLOBULINA 2.9 G/DL (2.4-3.5); MAGNESIUM 2.4 mg/dL (1.8-2.4); POTASSIUM 3.56 mEq/L (3.5-5.1); TOTAL PROTEIN 5.7 gm/dL (6.4-8.2)
[2024-04-09 09:43] VITALS: BP 151/70; O2SAT 95
[2024-04-09 16:06] LABS: C-REACTIVE PROTEIN 0.66 MG/DL (0.00-0.29)
[2024-04-09 16:34] VITALS: BP 143/73
[2024-04-09] MEDS ORDERED: FLUCONAZOLE IN NACL,ISO-OSM 2 MG/ML ML IV SCH (17:00)
[2024-04-09] MEDS ORDERED: SUCRALFATE 1 G TABLET PO SCH (17:00)
[2024-04-10 01:12] VITALS: BP 157/70; O2SAT 98
[2024-04-10 08:39] VITALS: BP 151/85; O2SAT 98
[2024-04-10 15:50] VITALS: BP 137/77; O2SAT 98
[2024-04-10 22:05] LABS: HEMATOCRIT 27.8 % (36.0-45.00); HEMOGLOBIN 9.6 g/dL (12.0-15.00); MEAN CORPUSCULAR HEMOGLOBIN 31.1 pg (27.00-32.0); MEAN CORPUSCULAR HGB CONC 34.6 g/dl (32.0-36.0); RED BLOOD COUNT 3.09 M/uL (4.00-6.00); RED CELL DISTRIBUTION WIDTH 14.6 % (11.5-14.5)
[2024-04-10 22:29] LABS: PLATELET COUNT 23 K/uL (150-450)
[2024-04-11 01:14] VITALS: BP 160/80; O2SAT 95
[2024-04-11 09:01] VITALS: BP 145/75; O2SAT 99
[2024-04-11 16:55] VITALS: BP 150/65; O2SAT 98
[2024-04-11 17:09] LABS: Glycopro Negative (Negative); HL Negative (Negative); la Negative (Negative); lb Negative (Negative); llb Negative (Negative)
[2024-04-11] MEDS ORDERED: VANCOMYCIN HCL 5 MG/ML REDILUIDO IV SCH (21:00)
[2024-04-11 22:34] LABS: MEAN CELL VOLUME 88.7 fL (80.00-100.00); MEAN CORPUSCULAR HGB CONC 35.3 g/dl (32.0-36.0); RED BLOOD COUNT 2.62 M/uL (4.00-6.00); RED CELL DISTRIBUTION WIDTH 14.7 % (11.5-14.5)
[2024-04-11 22:45] LABS: HEMATOCRIT 23.3 % (36.0-45.00); MEAN CORPUSCULAR HEMOGLOBIN 31.2 pg (27.00-32.0)
[2024-04-11 22:51] LABS: HEMOGLOBIN 8.2 g/dL (12.0-15.00); PLATELET COUNT 18 K/uL (150-450)
[2024-04-12 01:01] VITALS: BP 157/67; O2SAT 95
[2024-04-12 08:47] VITALS: BP 147/73; O2SAT 97
[2024-04-12 16:55] VITALS: BP 132/76; O2SAT 96
[2024-04-13 00:26] VITALS: BP 111/60; O2SAT 98
[2024-04-13 08:54] VITALS: BP 161/73; O2SAT 97
[2024-04-13] MEDS ORDERED: PREDNISONE 20 MG TABLET PO SCH (17:00)
[2024-04-13 17:20] VITALS: BP 160/73; O2SAT 98
[2024-04-14 00:47] VITALS: BP 145/72
[2024-04-14 07:40] LABS: HEMATOCRIT 25.7 % (36.0-45.00); HEMOGLOBIN 9.1 g/dL (12.0-15.00); MEAN CELL VOLUME 87.5 fL (80.00-100.00); MEAN CORPUSCULAR HEMOGLOBIN 30.9 pg (27.00-32.0); MEAN CORPUSCULAR HGB CONC 35.3 g/dl (32.0-36.0); PLATELET COUNT 31 K/uL (150-450); RED BLOOD COUNT 2.94 M/uL (4.00-6.00); RED CELL DISTRIBUTION WIDTH 15.2 % (11.5-14.5)
[2024-04-14 08:07] LABS: INR 1.23; PARTIAL THROMBOPLASTIN TIME 32.5 SECONDS (22.0-34.0); PROTHROMBIN TIME 13.2 SECONDS (9.0-11.5)
[2024-04-14 08:16] LABS: ALBUMIN 2.5 gm/dL (3.4-5.0); BILIRUBIN TOTAL 1.34 mg/dL (0.3-1.2); CALCIUM 7.7 mg/dL (8.5-10.1); CREATININE SERUM 0.58 mg/dL (0.55-1.02); GFR 100.54; GLOBULINA 2.7 G/DL (2.4-3.5); PHOSPHOROUS 2.3 mg/dL (2.5-4.9); TOTAL PROTEIN 5.2 gm/dL (6.4-8.2)
[2024-04-14 08:22] LABS: MANUAL PLATELET COUNT 90
[2024-04-14 08:23] LABS: PLATELET ESTIMATE DECREASED (NORMAL)
[2024-04-14 08:25] VITALS: BP 144/72; O2SAT 96
[2024-04-14 08:52] LABS: C-REACTIVE PROTEIN 0.38 MG/DL (0.00-0.29); MAGNESIUM 1.1 mg/dL (1.8-2.4); POTASSIUM 2.99 mEq/L (3.5-5.1)
[2024-04-14] MEDS ORDERED: COLLAGENASE CLOSTRIDIUM HIST. 30 GM TUBE TOP SCH (10:17)
[2024-04-14] MEDS ORDERED: RIVAROXABAN 10 MG TAB PO SCH (11:10)
[2024-04-14] MEDS ORDERED: MAGNESIUM SULFATE IN WATER 50 ML IV SCH (12:00)
[2024-04-14] MEDS ORDERED: POTASSIUM CHLORIDE IN WATER 40 MEQ/100 ML PIGGYBAG IV SCH (13:00)
[2024-04-14 18:11] VITALS: BP 144/73; O2SAT 97
[2024-04-15 02:09] VITALS: BP 116/71; O2SAT 95
[2024-04-15 08:24] VITALS: BP 157/64
[2024-04-15 18:38] VITALS: BP 146/69
[2024-04-15 21:15] LABS: HEMATOCRIT 25.7 % (36.0-45.00); MEAN CELL VOLUME 89.8 fL (80.00-100.00); MEAN CORPUSCULAR HGB CONC 34.4 g/dl (32.0-36.0); RED BLOOD COUNT 2.86 M/uL (4.00-6.00); RED CELL DISTRIBUTION WIDTH 14.5 % (11.5-14.5)
[2024-04-15 21:17] LABS: HEMOGLOBIN 8.8 g/dL (12.0-15.00); MEAN CORPUSCULAR HEMOGLOBIN 30.7 pg (27.00-32.0); PLATELET COUNT 35 K/uL (150-450)
[2024-04-15 21:28] LABS: CALCIUM 8.2 mg/dL (8.5-10.1); CREATININE SERUM 0.64 mg/dL (0.55-1.02); GFR 89.74; POTASSIUM 4.31 mEq/L (3.5-5.1)
[2024-04-16 03:03] VITALS: BP 143/74
[2024-04-16 08:55] LABS: ALBUMIN 2.2 gm/dL (3.4-5.0); BILIRUBIN TOTAL 1.2 mg/dL (0.3-1.2); CALCIUM 7.8 mg/dL (8.5-10.1); CREATININE SERUM 0.54 mg/dL (0.55-1.02); GFR 109.18; GLOBULINA 2.4 G/DL (2.4-3.5); POTASSIUM 3.66 mEq/L (3.5-5.1); TOTAL PROTEIN 4.6 gm/dL (6.4-8.2)
[2024-04-16 09:10] LABS: MAGNESIUM 1.4 mg/dL (1.8-2.4); PHOSPHOROUS 1.5 mg/dL (2.5-4.9)
[2024-04-16 09:14] VITALS: BP 114/68
[2024-04-16 13:01] VITALS: O2SAT 81
[2024-04-16] MEDS ORDERED: MAGNESIUM SULFATE IN WATER 50 ML IV NR (15:00)
[2024-04-16 17:54] VITALS: BP 134/68
[2024-04-16] MEDS ORDERED: POTASSIUM PHOS,M-BASIC-D-BASIC 45mM/15ml VIAL IV SCH (18:00)
[2024-04-17 00:38] VITALS: BP 122/73; O2SAT 98
[2024-04-17 07:40] LABS: ALBUMIN 2.4 gm/dL (3.4-5.0); BILIRUBIN TOTAL 1.32 mg/dL (0.3-1.2); CALCIUM 7.6 mg/dL (8.5-10.1); CREATININE SERUM 0.53 mg/dL (0.55-1.02); GFR 111.57; GLOBULINA 2.6 G/DL (2.4-3.5); MAGNESIUM 1.8 mg/dL (1.8-2.4); PHOSPHOROUS 3.9 mg/dL (2.5-4.9); POTASSIUM 4.27 mEq/L (3.5-5.1)
[2024-04-17 08:30] LABS: HEMATOCRIT 25.8 % (36.0-45.00); MEAN CELL VOLUME 88.7 fL (80.00-100.00); MEAN CORPUSCULAR HEMOGLOBIN 30.9 pg (27.00-32.0); MEAN CORPUSCULAR HGB CONC 34.9 g/dl (32.0-36.0); RED BLOOD COUNT 2.91 M/uL (4.00-6.00); RED CELL DISTRIBUTION WIDTH 14.1 % (11.5-14.5)
[2024-04-17 08:32] VITALS: BP 143/74
[2024-04-17 08:41] LABS: PLATELET COUNT 36 K/uL (150-450)
[2024-04-17 17:27] VITALS: BP 122/64
[2024-04-18 00:32] VITALS: BP 137/77; O2SAT 97
[2024-04-18 09:13] VITALS: BP 125/75
[2024-04-18 17:58] VITALS: BP 149/73
[2024-04-19 02:13] VITALS: BP 112/57; O2SAT 98
[2024-04-19 06:35] LABS: MEAN CELL VOLUME 87.4 fL (80.00-100.00); MEAN CORPUSCULAR HGB CONC 35.4 g/dl (32.0-36.0); RED BLOOD COUNT 2.54 M/uL (4.00-6.00); RED CELL DISTRIBUTION WIDTH 14.9 % (11.5-14.5)
[2024-04-19 06:39] LABS: HEMATOCRIT 22.2 % (36.0-45.00); MEAN CORPUSCULAR HEMOGLOBIN 31.1 pg (27.00-32.0); PLATELET COUNT 37 K/uL (150-450)
[2024-04-19 06:40] LABS: HEMOGLOBIN 7.9 g/dL (12.0-15.00)
[2024-04-19 09:07] VITALS: BP 118/73; O2SAT 99
[2024-04-19 11:12] LABS: PLATELET ESTIMATE DECREASED (NORMAL)
[2024-04-19 17:37] VITALS: BP 113/65; O2SAT 98
[2024-04-20 01:45] VITALS: BP 110/55; O2SAT 96
[2024-04-20 08:45] VITALS: BP 140/70; O2SAT 96
[2024-04-20] MEDS ORDERED: HYDROCORTISONE ACETATE 25 MG/SUPP.RECT SUPP.RECT RECTAL SCH (09:00)
[2024-04-20] MEDS ORDERED: HYDROCORTISONE 2.5% 20 GM TUBE TOP SCH (09:00)
[2024-04-20] MEDS ORDERED: GABAPENTIN 100 MG CAPSULE PO SCH (12:00)
[2024-04-20 16:10] VITALS: BP 127/70
[2024-04-20 17:40] LABS: HEMATOCRIT 32.8 % (36.0-45.00); HEMOGLOBIN 11.5 g/dL (12.0-15.00); MEAN CELL VOLUME 85.9 fL (80.00-100.00); RED BLOOD COUNT 3.81 M/uL (4.00-6.00)
[2024-04-20 17:41] LABS: PLATELET COUNT 50 K/uL (150-450)
[2024-04-21 01:43] VITALS: BP 152/72; O2SAT 96
[2024-04-21 08:37] LABS: HEMATOCRIT 31.8 % (36.0-45.00); HEMOGLOBIN 11.1 g/dL (12.0-15.00); MEAN CORPUSCULAR HGB CONC 34.9 g/dl (32.0-36.0); RED BLOOD COUNT 3.69 M/uL (4.00-6.00); RED CELL DISTRIBUTION WIDTH 14.9 % (11.5-14.5)
[2024-04-21 08:41] LABS: PLATELET COUNT 44 K/uL (150-450)
[2024-04-21 09:03] VITALS: BP 143/84; O2SAT 95
[2024-04-21 09:23] LABS: MANUAL PLATELET COUNT 110
[2024-04-21 15:41] VITALS: BP 108/61
[2024-04-22 01:43] VITALS: BP 116/65; O2SAT 97
[2024-04-22 06:36] LABS: ALBUMIN 2.3 gm/dL (3.4-5.0); BILIRUBIN TOTAL 1.09 mg/dL (0.3-1.2); CALCIUM 7.8 mg/dL (8.5-10.1); CREATININE SERUM 0.57 mg/dL (0.55-1.02); GFR 102.58; GLOBULINA 2.3 G/DL (2.4-3.5); TOTAL PROTEIN 4.6 gm/dL (6.4-8.2)
[2024-04-22 06:45] LABS: POTASSIUM 2.92 mEq/L (3.5-5.1)
[2024-04-22 06:47] LABS: HEMATOCRIT 29.4 % (36.0-45.00); HEMOGLOBIN 10.3 g/dL (12.0-15.00); MEAN CELL VOLUME 85.9 fL (80.00-100.00); RED BLOOD COUNT 3.42 M/uL (4.00-6.00); RED CELL DISTRIBUTION WIDTH 14.7 % (11.5-14.5)
[2024-04-22 07:00] LABS: PLATELET COUNT 35 K/uL (150-450)
[2024-04-22 08:03] VITALS: BP 170/78
[2024-04-22] MEDS ORDERED: POTASSIUM CHLORIDE 20MEQ/100ML H2O PB IV SCH (09:00)
[2024-04-22] MEDS ORDERED: AMLODIPINE BESY10 MG PO (13:47)
[2024-04-22] MEDS ORDERED: GABAPENTIN100 MG PO (13:47)
[2024-04-22] MEDS ORDERED: CIPRO500 MG/5 M PO (13:47)
[2024-04-22] MEDS ORDERED: TOPROL XL50 M1 PO (13:47)
[2024-04-22] MEDS ORDERED: DOXAZOSIN MESYLA4 MG PO (13:47)
[2024-04-22] MEDS ORDERED: PREDNISONE20 MG PO (13:47)
[2024-04-22] MEDS ORDERED: XARELTO10 MG PO (13:47)
[2024-04-22 18:10] VITALS: BP 115/66; O2SAT 97
[2024-04-23 01:05] VITALS: BP 98/47; O2SAT 96
[2024-04-23 09:26] VITALS: BP 139/80; O2SAT 97
[2024-04-23 11:17] LABS: HEMATOCRIT 31.3 % (36.0-45.00); HEMOGLOBIN 10.9 g/dL (12.0-15.00); MEAN CELL VOLUME 87.1 fL (80.00-100.00); MEAN CORPUSCULAR HEMOGLOBIN 30.3 pg (27.00-32.0); MEAN CORPUSCULAR HGB CONC 34.8 g/dl (32.0-36.0); RED BLOOD COUNT 3.59 M/uL (4.00-6.00); RED CELL DISTRIBUTION WIDTH 14.8 % (11.5-14.5)
[2024-04-23 11:43] LABS: PLATELET COUNT 42 K/uL (150-450)
[2024-04-23 12:24] LABS: ALBUMIN 2.4 gm/dL (3.4-5.0); BILIRUBIN TOTAL 1.08 mg/dL (0.3-1.2); CALCIUM 7.8 mg/dL (8.5-10.1); CREATININE SERUM 0.58 mg/dL (0.55-1.02); GFR 100.54; GLOBULINA 2.8 G/DL (2.4-3.5); TOTAL PROTEIN 5.2 gm/dL (6.4-8.2)
[2024-04-23 12:39] LABS: POTASSIUM 2.95 mEq/L (3.5-5.1)
[2024-04-23] MEDS ORDERED: POTASSIUM BICARBONATE/CIT AC 25 MEQ TABLET.EFF PO NR ×2 (15:00→17:00)
[2024-04-23 17:45] VITALS: BP 110/65; O2SAT 96
[2024-04-23] MEDS ORDERED: POTASSIUM BICARBONATE/CIT AC 25 MEQ TABLET.EFF PO SCH (20:00)
[2024-04-24] MEDS ORDERED: POTASSIUM BICARBONATE/CIT AC 25 MEQ TABLET.EFF PO SCH
[2024-04-24 00:38] VITALS: BP 113/70
[2024-04-24 09:02] VITALS: BP 136/65; O2SAT 96
[2024-04-24 10:55] LABS: HEMATOCRIT 33.4 % (36.0-45.00); HEMOGLOBIN 11.4 g/dL (12.0-15.00); MEAN CORPUSCULAR HEMOGLOBIN 29.7 pg (27.00-32.0); MEAN CORPUSCULAR HGB CONC 34.2 g/dl (32.0-36.0); RED BLOOD COUNT 3.84 M/uL (4.00-6.00); RED CELL DISTRIBUTION WIDTH 14.8 % (11.5-14.5)
[2024-04-24 10:56] LABS: PLATELET COUNT 49 K/uL (150-450)
[2024-04-24 11:26] LABS: ALBUMIN 2.5 gm/dL (3.4-5.0); CALCIUM 8.2 mg/dL (8.5-10.1); CREATININE SERUM 0.66 mg/dL (0.55-1.02); GFR 86.61; POTASSIUM 3.72 mEq/L (3.5-5.1)
[2024-04-24 14:05] LABS: MAGNESIUM 1.1 mg/dL (1.8-2.4); PHOSPHOROUS 1.7 mg/dL (2.5-4.9)
[2024-04-24] MEDS ORDERED: POTASSIUM PHOS,M-BASIC-D-BASIC 3 MM/ML VIAL IV NR (14:15)
[2024-04-24] MEDS ORDERED: MAGNESIUM SULFATE IN WATER 2 GM/50 ML PIGGYBAG IV NR (14:30)
[2024-04-24 17:23] VITALS: BP 131/62; O2SAT 96
[2024-04-25 00:59] VITALS: BP 105/50
[2024-04-25 08:23] VITALS: BP 160/80; O2SAT 98
[2024-04-25 08:43] LABS: ALBUMIN 2.3 gm/dL (3.4-5.0); BILIRUBIN TOTAL 1.23 mg/dL (0.3-1.2); CALCIUM 7.7 mg/dL (8.5-10.1); CREATININE SERUM 0.54 mg/dL (0.55-1.02); GFR 109.18; GLOBULINA 2.6 G/DL (2.4-3.5); MAGNESIUM 1.7 mg/dL (1.8-2.4); PHOSPHOROUS 4.1 mg/dL (2.5-4.9); POTASSIUM 4.16 mEq/L (3.5-5.1); TOTAL PROTEIN 4.9 gm/dL (6.4-8.2)
== END 2024-04-25 16:38 | disposition home or self-care (01) | DRG 871 ==
LOC: ER 10:52 → MEDI 21:54 → ICU 21:54 → MEDJ 04-05 22:35
PROVIDERS: General Practice; Internal Medicine; Internal Medicine Hematology & Oncology; Internal Medicine Infectious Disease; Internal Medicine Nephrology; ADMIT Internal Medicine; ATTEND Internal Medicine
PROC: BW40ZZZ Ultrasonography of Abdomen (ICD-10-PCS; 2024-03-06)
PROC: BW21ZZZ Computerized Tomography (CT Scan) of Abdomen and Pelvis (ICD-10-PCS; 2024-03-06)
PROC: BW30ZZZ Magnetic Resonance Imaging (MRI) of Abdomen (ICD-10-PCS; 2024-03-06)
PROC: 4A12X4Z Monitoring of Cardiac Electrical Activity, External Approach (ICD-10-PCS; 2024-03-07)
PROC: 30243N1 Transfusion of Nonautologous Red Blood Cells into Central Vein, Percutaneous Approach (ICD-10-PCS; 2024-03-07)
PROC: [UNRECOGNIZED PROCEDURE] (2024-03-07)
PROC: B54NZZZ Ultrasonography of Left Upper Extremity Veins (ICD-10-PCS; 2024-03-13)
PROC: BT4JZZZ Ultrasonography of Kidneys and Bladder (ICD-10-PCS; 2024-03-14)
PROC: 02HV33Z Insertion of Infusion Device into Superior Vena Cava, Percutaneous Approach (ICD-10-PCS; 2024-03-16)
PROC: 05H633Z Insertion of Infusion Device into Left Subclavian Vein, Percutaneous Approach (ICD-10-PCS; principal; 2024-03-19)
PROC: B24BYZZ Ultrasonography of Heart with Aorta using Other Contrast (ICD-10-PCS; 2024-03-19)
PROC: 6A550Z3 Pheresis of Plasma, Single (ICD-10-PCS; 2024-03-20)
PROC: 5A1D70Z Performance of Urinary Filtration, Intermittent, Less than 6 Hours Per Day (ICD-10-PCS; 2024-03-22)
PROC: 5A1D70Z Performance of Urinary Filtration, Intermittent, Less than 6 Hours Per Day (ICD-10-PCS; 2024-03-24)
PROC: 0HBEXZZ Excision of Left Lower Arm Skin, External Approach (ICD-10-PCS; 2024-03-26)
PROC: 5A1D70Z Performance of Urinary Filtration, Intermittent, Less than 6 Hours Per Day (ICD-10-PCS; 2024-03-26)
PROC: BW21ZZZ Computerized Tomography (CT Scan) of Abdomen and Pelvis (ICD-10-PCS; 2024-04-13)
PROC: BW24ZZZ Computerized Tomography (CT Scan) of Chest and Abdomen (ICD-10-PCS; 2024-04-13)
DX: A41.9 Sepsis, unspecified organism (principal); J18.9 Pneumonia, unspecified organism; M31.19 Other thrombotic microangiopathy; N17.9 Acute kidney failure, unspecified; E87.0 Hyperosmolality and hypernatremia; D58.9 Hereditary hemolytic anemia, unspecified; N39.0 Urinary tract infection, site not specified; E87.3 Alkalosis; Z68.1 Body mass index [BMI] 19.9 or less, adult; E80.6 Other disorders of bilirubin metabolism; R33.9 Retention of urine, unspecified; L98.499 Non-pressure chronic ulcer of skin of other sites with unspecified severity; E11.65 Type 2 diabetes mellitus with hyperglycemia; Z79.4 Long term (current) use of insulin; I10 Essential (primary) hypertension; B96.1 Klebsiella pneumoniae [K. pneumoniae] as the cause of diseases classified elsewhere; Z79.52 Long term (current) use of systemic steroids; D64.9 Anemia, unspecified; R63.0 Anorexia; I49.9 Cardiac arrhythmia, unspecified

== ENCOUNTER 2024-05-11 22:00 | Inpatient (IN) | payer OTHER ==
[~2024-05-11] VITALS: Ht 152.4 cm; Wt 45.4 kg
[~2024-05-11 22:00] MED LIST: AMLODIPINE BESY10 MG PO; CIPRO500 MG/5 M PO; DOXAZOSIN MESYLA4 MG PO; GABAPENTIN100 MG PO; PREDNISONE20 MG PO; TOPROL XL50 M1 PO; XARELTO10 MG PO
[2024-05-12] MEDS ORDERED: CEFTRIAXONE SODIUM 1,000 MG VIAL IV STA (00:35)
[2024-05-12 02:22] LABS: HEMATOCRIT 28.3 % (36.0-45.00); MEAN CELL VOLUME 95.5 fL (80.00-100.00); MEAN CORPUSCULAR HGB CONC 32.6 g/dl (32.0-36.0); RED BLOOD COUNT 2.96 M/uL (4.00-6.00)
[2024-05-12 02:34] LABS: INR 1.13; PARTIAL THROMBOPLASTIN TIME 21.5 SECONDS (22.0-34.0); PROTHROMBIN TIME 12.2 SECONDS (9.0-11.5)
[2024-05-12 02:36] LABS: ALBUMIN 2.5 gm/dL (3.4-5.0); BILIRUBIN TOTAL 1.28 mg/dL (0.3-1.2); CALCIUM 9.1 mg/dL (8.5-10.1); CREATININE SERUM 1.3 mg/dL (0.55-1.02); GFR 39.61; GLOBULINA 3.3 G/DL (2.4-3.5); POTASSIUM 3.63 mEq/L (3.5-5.1); TOTAL PROTEIN 5.8 gm/dL (6.4-8.2)
[2024-05-12 02:51] LABS: PH,URINE 6.5 (5.0-8.0); URINE APPEARANCE Clear; URINE BILIRRUBIN Negative (NEGATIVE); URINE BLOOD Negative; URINE COLOR Yellow; URINE KETONE Negative (NEGATIVE); URINE LEUKOCYTE Negative; URINE NITRATE Negative; URINE PROTEIN Trace (NEGATIVE); URINE UROBILINOGEN 0.2 E.U./dl
[2024-05-12 02:55] LABS: URINE BACTERIA 18.8 uL (0.0-1933); URINE EPITHELIAL CELLS 4.7 uL (0.0-38.8); URINE RBC 111.7 uL (0.0-20.8); URINE WBC 24.4 uL (0.0-23.2)
[2024-05-12] MEDS ORDERED: INSULIN REGULAR, HUMAN 1,000 UNIT/10 ML UNITS IV STA ×2 (03:05→04:46)
[2024-05-12] MEDS ORDERED: 0.9 % SODIUM CHLORIDE 1,000 ML IV ONE (03:15)
[2024-05-12 03:16] LABS: HEMOGLOBIN 9.2 g/dL (12.0-15.00); PLATELET COUNT 49 K/uL (150-450); RED CELL DISTRIBUTION WIDTH 21.2 % (11.5-14.5)
[2024-05-12 03:17] LABS: URINE CAST 0.15 uL (0.0-1.40); URINE GLUCOSE >=1000 MG/DL (NEGATIVE)
[2024-05-12 06:30] LABS: ABG PH 7.478 (7.35-7.45); ABG PO2 85.6 mmHg (80-100); ABG pCO2 39.2 mmHg (35-45); BASE EXCESS 4.6 mmol/l; BICARBONATE 28.4 mmol/l (23-25); SaO2 97.3 %; Tco2 29.6 mmol/l; allen test SATISFACTORY; o2 21 %; puncture site BRADIAL RIGHT
[2024-05-12] MEDS ORDERED: SODIUM CHLORIDE 0.45 % 1,000 ML IV SCH (17:30)
[2024-05-12] MEDS ORDERED: INSULIN REGULAR, HUMAN 1,000 UNIT/10 ML UNITS IV ONE (17:30)
[2024-05-12] MEDS ORDERED: CEFTRIAXONE SODIUM 2,000 MG in 0.9 % SODIUM CHLORIDE 100 ML IV SCH (17:36)
[2024-05-12] MEDS ORDERED: PANTOPRAZOLE SODIUM 40 MG/VIAL VIAL IV SCH (17:36)
[2024-05-12] MEDS ORDERED: METOPROLOL SUCCINATE 50 MG TAB.SR.24H PO SCH (17:37)
[2024-05-12] MEDS ORDERED: ACETAMINOPHEN 500 MG GEL..CAP PO PRN (17:45)
[2024-05-12] MEDS ORDERED: DEXTROSE 50 % IN WATER 0.5 G/ML DISP.SYRIN IV PRN (17:45)
[2024-05-12] MEDS ORDERED: ONDANSETRON HCL 4 MG in 0.9 % SODIUM CHLORIDE 50 ML IV PRN (17:45)
[2024-05-12] MEDS ORDERED: INSULIN LISPRO 1,000 UNIT/10 ML UNITS SUBCUTANEO PRN (17:45)
[2024-05-12 18:22] VITALS: BP 155/76
[2024-05-12 19:03] LABS: INR 1.16; PARTIAL THROMBOPLASTIN TIME 20.9 SECONDS (22.0-34.0); PROTHROMBIN TIME 12.5 SECONDS (9.0-11.5)
[2024-05-12 19:08] LABS: ALBUMIN 2.6 gm/dL (3.4-5.0); BILIRUBIN TOTAL 1.88 mg/dL (0.3-1.2); CALCIUM 8.7 mg/dL (8.5-10.1); CREATININE SERUM 1.16 mg/dL (0.55-1.02); GFR 45.18; GLOBULINA 3.3 G/DL (2.4-3.5); MAGNESIUM 1.9 mg/dL (1.8-2.4); PHOSPHOROUS 2.8 mg/dL (2.5-4.9); POTASSIUM 3.1 mEq/L (3.5-5.1); TOTAL PROTEIN 5.9 gm/dL (6.4-8.2)
[2024-05-12 19:22] LABS: C-REACTIVE PROTEIN 0.34 MG/DL (0.00-0.29)
[2024-05-12 23:00] VITALS: BP 160/80; O2SAT 97
[2024-05-13 03:45] LABS: PH,URINE 7.5 (5.0-8.0); URINE APPEARANCE Clear; URINE BILIRRUBIN Negative (NEGATIVE); URINE BLOOD Negative; URINE COLOR Yellow; URINE KETONE Negative (NEGATIVE); URINE LEUKOCYTE Negative; URINE NITRATE Negative; URINE PROTEIN Trace (NEGATIVE); URINE UROBILINOGEN 0.2 E.U./dl
[2024-05-13 03:48] LABS: URINE BACTERIA 12.5 uL (0.0-1933); URINE RBC 128.8 uL (0.0-20.8); URINE WBC 49.4 uL (0.0-23.2)
[2024-05-13 05:37] LABS: URINE GLUCOSE 500 MG/DL (NEGATIVE)
[2024-05-13 05:39] LABS: URINE CAST 0.15 uL (0.0-1.40); URINE YEAST MANY /hpf
[2024-05-13 05:53] VITALS: BP 160/80; O2SAT 95
[2024-05-13 07:19] LABS: CALCIUM 8.4 mg/dL (8.5-10.1); CREATININE SERUM 1.28 mg/dL (0.55-1.02); GFR 40.33
[2024-05-13 08:26] LABS: POTASSIUM 2.74 mEq/L (3.5-5.1)
[2024-05-13] MEDS ORDERED: AMLODIPINE BESYLATE 5 MG TABLET PO SCH (09:00)
[2024-05-13] MEDS ORDERED: GABAPENTIN 100 MG CAPSULE PO SCH (09:00)
[2024-05-13] MEDS ORDERED: METHYLPREDNISOLONE SOD SUCC 40 MG VIAL IV SCH (09:00)
[2024-05-13 09:16] VITALS: BP 165/81; O2SAT 99
[2024-05-13 12:42] LABS: TSH 1.05 uIU/mL (0.358-3.74)
[2024-05-13 14:10] VITALS: O2SAT 98
[2024-05-13] MEDS ORDERED: POTASSIUM CHLORIDE IN WATER 100 ML IV SCH (16:00)
[2024-05-13 16:29] VITALS: O2SAT 99
[2024-05-13 18:19] VITALS: BP 184/88; O2SAT 95
[2024-05-13 19:01] VITALS: O2SAT 97
[2024-05-13] MEDS ORDERED: MEROPENEM 500 MG/VIAL VIAL IV SCH (21:00)
[2024-05-14] VITALS (9 sets, daily range): BP systolic 152–181; BP diastolic 79–80; O2SAT 97–100
[2024-05-14 05:06] LABS: HEMATOCRIT 24.7 % (36.0-45.00); MEAN CELL VOLUME 91.1 fL (80.00-100.00); MEAN CORPUSCULAR HGB CONC 33.8 g/dl (32.0-36.0); RED BLOOD COUNT 2.72 M/uL (4.00-6.00); RED CELL DISTRIBUTION WIDTH 19.9 % (11.5-14.5)
[2024-05-14 05:31] LABS: ALBUMIN 2.4 gm/dL (3.4-5.0); BILIRUBIN TOTAL 2.06 mg/dL (0.3-1.2); CALCIUM 7.6 mg/dL (8.5-10.1); CREATININE SERUM 1.09 mg/dL (0.55-1.02); GFR 48.55; GLOBULINA 2.7 G/DL (2.4-3.5); MAGNESIUM 1.7 mg/dL (1.8-2.4); PHOSPHOROUS 3.5 mg/dL (2.5-4.9); TOTAL PROTEIN 5.1 gm/dL (6.4-8.2)
[2024-05-14 05:40] LABS: C-REACTIVE PROTEIN 0.31 MG/DL (0.00-0.29)
[2024-05-14 05:45] LABS: POTASSIUM 2.62 mEq/L (3.5-5.1)
[2024-05-14 05:46] LABS: MEAN CORPUSCULAR HEMOGLOBIN 30.8 pg (27.00-32.0)
[2024-05-14 05:47] LABS: HEMOGLOBIN 8.4 g/dL (12.0-15.00); PLATELET COUNT 30 K/uL (150-450)
[2024-05-14] MEDS ORDERED: MAGNESIUM SULFATE IN WATER 2 GM/50 ML PIGGYBAG IV NR (11:01)
[2024-05-14] MEDS ORDERED: POTASSIUM CHLORIDE 20MEQ/100ML H2O PB IV SCH (13:00)
[2024-05-14] MEDS ORDERED: VANCOMYCIN HCL 500 MG VIAL IV SCH (15:00)
[2024-05-14] MEDS ORDERED: METHYLPREDNISOLONE SOD SUCC 40 MG VIAL IV SCH (21:00)
[2024-05-15] VITALS (9 sets, daily range): BP systolic 160–185; BP diastolic 70–86; O2SAT 96–99
[2024-05-15] MEDS ORDERED: PANTOPRAZOLE SODIUM 40 MG TABLET.DR PO SCH (09:00)
[2024-05-15] MEDS ORDERED: POTASSIUM CHLORIDE/D5-0.45NACL 1,000 ML IV SCH (09:30)
[2024-05-15] MEDS ORDERED: ZINC OXIDE 30 GM,SILVER SULFADIAZINE 50 GM,NYSTATIN 30 GM TOP SCH (13:00)
[2024-05-15 15:26] LABS: CALCIUM 7.4 mg/dL (8.5-10.1); CREATININE SERUM 0.93 mg/dL (0.55-1.02); GFR 58.31; POTASSIUM 3.26 mEq/L (3.5-5.1)
[2024-05-15 15:29] LABS: BILIRUBIN TOTAL 1.79 mg/dL (0.3-1.2); BILIRUBIN,CONJUGATED 0.4 mg/dL (0.0-0.2); BILIRUBIN,UNCONJUGATED 1.39 mg/dL (0.0-0.6)
[2024-05-16] VITALS (9 sets, daily range): BP systolic 154–160; BP diastolic 78–90; O2SAT 95–99
[2024-05-16] MEDS ORDERED: INSULIN GLARGINE,HUM.REC.ANLOG 1,000 UNITS/10 ML UNITS SUBCUTANEO SCH (09:00)
[2024-05-16 13:48] LABS: MEAN CELL VOLUME 91.1 fL (80.00-100.00); MEAN CORPUSCULAR HEMOGLOBIN 30.5 pg (27.00-32.0); MEAN CORPUSCULAR HGB CONC 33.5 g/dl (32.0-36.0); RED BLOOD COUNT 2.75 M/uL (4.00-6.00); RED CELL DISTRIBUTION WIDTH 19.2 % (11.5-14.5)
[2024-05-16 13:49] LABS: HEMOGLOBIN 8.4 g/dL (12.0-15.00); PLATELET COUNT 38 K/uL (150-450)
[2024-05-16 14:10] LABS: ALBUMIN 2.4 gm/dL (3.4-5.0); CALCIUM 7.9 mg/dL (8.5-10.1); CREATININE SERUM 1.08 mg/dL (0.55-1.02); GFR 49.06; PHOSPHOROUS 2.3 mg/dL (2.5-4.9); POTASSIUM 3.43 mEq/L (3.5-5.1)
[2024-05-17] VITALS (8 sets, daily range): BP systolic 140–165; BP diastolic 85; O2SAT 91–98
[2024-05-17] MEDS ORDERED: POTASSIUM CHLORIDE IN WATER 40 MEQ/100 ML PIGGYBAG IV ONE (02:15)
[2024-05-17 07:06] LABS: MEAN CELL VOLUME 91.8 fL (80.00-100.00); MEAN CORPUSCULAR HGB CONC 33.4 g/dl (32.0-36.0); RED BLOOD COUNT 2.44 M/uL (4.00-6.00); RED CELL DISTRIBUTION WIDTH 19.3 % (11.5-14.5)
[2024-05-17 07:13] LABS: ALBUMIN 2.4 gm/dL (3.4-5.0); BILIRUBIN TOTAL 0.98 mg/dL (0.3-1.2); CALCIUM 7.7 mg/dL (8.5-10.1); CREATININE SERUM 1.06 mg/dL (0.55-1.02); GFR 50.13; GLOBULINA 2.3 G/DL (2.4-3.5); MAGNESIUM 1.8 mg/dL (1.8-2.4); POTASSIUM 4.28 mEq/L (3.5-5.1); TOTAL PROTEIN 4.7 gm/dL (6.4-8.2)
[2024-05-17 07:23] LABS: ALBUMIN 2.4 gm/dL (3.4-5.0); BILIRUBIN TOTAL 0.91 mg/dL (0.3-1.2); BILIRUBIN,CONJUGATED 0.24 mg/dL (0.0-0.2); BILIRUBIN,UNCONJUGATED 0.67 mg/dL (0.0-0.6); PHOSPHOROUS 5.8 mg/dL (2.5-4.9); TOTAL PROTEIN 4.7 gm/dL (6.4-8.2)
[2024-05-17 07:58] LABS: MEAN CORPUSCULAR HEMOGLOBIN 30.7 pg (27.00-32.0)
[2024-05-17 07:59] LABS: HEMATOCRIT 22.4 % (36.0-45.00); HEMOGLOBIN 7.5 g/dL (12.0-15.00); PLATELET COUNT 40 K/uL (150-450)
[2024-05-17] MEDS ORDERED: DEXTROSE 5 %-0.45 % SOD CHLORD 1,000 ML IV SCH (16:45)
[2024-05-17] MEDS ORDERED: levoFLOXacin IN DEXTROSE 5 % 150 ML IV SCH (17:00)
[2024-05-18] VITALS (8 sets, daily range): BP systolic 101–164; BP diastolic 72–90; O2SAT 97–98
[2024-05-18] MEDS ORDERED: DEXTROSE 5 % IN WATER 1,000 ML IV SCH (08:15)
[2024-05-18] MEDS ORDERED: INSULIN GLARGINE,HUM.REC.ANLOG 1,000 UNITS/10 ML UNITS SUBCUTANEO SCH (09:00)
[2024-05-18 09:40] LABS: PLATELET ESTIMATE DECREASED (NORMAL)
[2024-05-19] VITALS (9 sets, daily range): BP systolic 80–180; BP diastolic 50–105; O2SAT 96–99
[2024-05-19] MEDS ORDERED: VANCOMYCIN HCL 500 MG VIAL IV SCH (21:00)
[2024-05-19 21:48] LABS: HEMATOCRIT 38.3 % (36.0-45.00); HEMOGLOBIN 13.1 g/dL (12.0-15.00); MEAN CELL VOLUME 87.6 fL (80.00-100.00); MEAN CORPUSCULAR HGB CONC 34.3 g/dl (32.0-36.0); PLATELET COUNT 68 K/uL (150-450); RED BLOOD COUNT 4.37 M/uL (4.00-6.00); RED CELL DISTRIBUTION WIDTH 17.4 % (11.5-14.5)
[2024-05-20] VITALS (9 sets, daily range): BP systolic 168–170; BP diastolic 74–88; O2SAT 90–99
[2024-05-21] VITALS (9 sets, daily range): BP systolic 150–159; BP diastolic 80–89; O2SAT 96–97
[2024-05-22] VITALS (8 sets, daily range): BP systolic 149–175; BP diastolic 80–90; O2SAT 96–98
[2024-05-22 08:42] LABS: HEMATOCRIT 33.6 % (36.0-45.00); HEMOGLOBIN 11.4 g/dL (12.0-15.00); MEAN CELL VOLUME 89.4 fL (80.00-100.00); MEAN CORPUSCULAR HEMOGLOBIN 30.3 pg (27.00-32.0); MEAN CORPUSCULAR HGB CONC 33.9 g/dl (32.0-36.0); RED BLOOD COUNT 3.76 M/uL (4.00-6.00); RED CELL DISTRIBUTION WIDTH 19.8 % (11.5-14.5)
[2024-05-22 08:43] LABS: PLATELET COUNT 73 K/uL (150-450)
[2024-05-22 17:11] LABS: ALBUMIN 1.7 gm/dL (3.4-5.0); BILIRUBIN TOTAL 1.58 mg/dL (0.3-1.2); CALCIUM 6.6 mg/dL (8.5-10.1); CREATININE SERUM 0.88 mg/dL (0.55-1.02); GFR 62.14; GLOBULINA 2.3 G/DL (2.4-3.5); PHOSPHOROUS 2.6 mg/dL (2.5-4.9); POTASSIUM 3.73 mEq/L (3.5-5.1)
[2024-05-22] MEDS ORDERED: SODIUM CHLORIDE 0.45 % 1,000 ML IV SCH (19:30)
[2024-05-22] MEDS ORDERED: MAGNESIUM SULFATE IN WATER 50 ML IV ONE (20:45)
[2024-05-22] MEDS ORDERED: INSULIN GLARGINE,HUM.REC.ANLOG 1,000 UNITS/10 ML UNITS SUBCUTANEO SCH (21:00)
[2024-05-23] VITALS (8 sets, daily range): BP systolic 138–183; BP diastolic 82–90; O2SAT 92–98
[2024-05-23] MEDS ORDERED: INSULIN GLARGINE,HUM.REC.ANLOG 1,000 UNITS/10 ML UNITS SUBCUTANEO SCH (09:00)
[2024-05-23 23:27] LABS: ALBUMIN 1.9 gm/dL (3.4-5.0); CREATININE SERUM 0.95 mg/dL (0.55-1.02); GFR 56.89; POTASSIUM 3.97 mEq/L (3.5-5.1)
[2024-05-24] VITALS (8 sets, daily range): BP systolic 155–180; BP diastolic 80–90; O2SAT 96–99
[2024-05-24 06:46] LABS: ALBUMIN 1.9 gm/dL (3.4-5.0); CALCIUM 8.1 mg/dL (8.5-10.1); CREATININE SERUM 0.69 mg/dL (0.55-1.02); GFR 82.28; MAGNESIUM 1.9 mg/dL (1.8-2.4); POTASSIUM 4.29 mEq/L (3.5-5.1)
[2024-05-24] MEDS ORDERED: METHYLPREDNISOLONE SOD SUCC 40 MG VIAL IV STA (22:48)
[2024-05-25] VITALS (9 sets, daily range): BP systolic 168–179; BP diastolic 76–100; O2SAT 95–98
[2024-05-25 02:30] LABS: HEMATOCRIT 35.7 % (36.0-45.00); MEAN CELL VOLUME 89.5 fL (80.00-100.00); MEAN CORPUSCULAR HGB CONC 33.5 g/dl (32.0-36.0); RED BLOOD COUNT 3.99 M/uL (4.00-6.00); RED CELL DISTRIBUTION WIDTH 20.2 % (11.5-14.5)
[2024-05-25 02:48] LABS: PLATELET COUNT 104 K/uL (150-450)
[2024-05-25] MEDS ORDERED: METHYLPREDNISOLONE SOD SUCC 40 MG VIAL IV SCH (09:00)
[2024-05-26 00:38] VITALS: BP 160/90; O2SAT 98
[2024-05-26 01:00] VITALS: O2SAT 99
[2024-05-26 05:00] VITALS: O2SAT 98
[2024-05-26 09:15] VITALS: BP 170/70
[2024-05-26 09:30] VITALS: O2SAT 90
[2024-05-26] MEDS ORDERED: LOSARTAN POTASSIUM 50 MG TABLET PO NR (12:00)
[2024-05-26 12:52] VITALS: O2SAT 97
[2024-05-26] MEDS ORDERED: LEVOFLOXACIN750 MG PO (13:33)
[2024-05-26] MEDS ORDERED: CLEOCIN HCL300 MG PO (13:44)
[2024-05-26] MEDS ORDERED: PREDNISONE20 MG PO (16:54)
[2024-05-26] MEDS ORDERED: GABAPENTIN100 MG PO (16:54)
[2024-05-26] MEDS ORDERED: LANTUS SOL100 UNIT/1 SUBCUTANEO (16:54)
[2024-05-26] MEDS ORDERED: AMLODIPINE BESYL5 MG PO (16:54)
[2024-05-26] MEDS ORDERED: DOXAZOSIN MESYLA4 MG PO (16:54)
[2024-05-26] MEDS ORDERED: AMLODIPINE BESYLATE 5 MG TABLET PO SCH (17:00)
[2024-05-27] MEDS ORDERED: LOSARTAN POTASSIUM 50 MG TABLET PO SCH (09:00)
== END 2024-05-26 18:45 | disposition home or self-care (01) | DRG 622 ==
LOC: ER 22:00 → SEC-K 05-12 18:31 → MEDI 05-12 18:31 → MEDJ 05-14 15:36
PROVIDERS: General Practice; Internal Medicine; Internal Medicine Hematology & Oncology; Internal Medicine Infectious Disease; Internal Medicine Nephrology; ADMIT Internal Medicine; ATTEND Internal Medicine
PROC: B54DZZZ Ultrasonography of Bilateral Lower Extremity Veins (ICD-10-PCS; 2024-05-12)
PROC: 4A12X4Z Monitoring of Cardiac Electrical Activity, External Approach (ICD-10-PCS; 2024-05-13)
PROC: 0JB70ZZ Excision of Back Subcutaneous Tissue and Fascia, Open Approach (ICD-10-PCS; principal; 2024-05-15)
PROC: 0JBH0ZZ Excision of Left Lower Arm Subcutaneous Tissue and Fascia, Open Approach (ICD-10-PCS; 2024-05-15)
PROC: 02HV33Z Insertion of Infusion Device into Superior Vena Cava, Percutaneous Approach (ICD-10-PCS; 2024-05-15)
PROC: BW40ZZZ Ultrasonography of Abdomen (ICD-10-PCS; 2024-05-17)
PROC: 30233N1 Transfusion of Nonautologous Red Blood Cells into Peripheral Vein, Percutaneous Approach (ICD-10-PCS; 2024-05-18)
PROC: 0HBEXZZ Excision of Left Lower Arm Skin, External Approach (ICD-10-PCS; 2024-05-26)
DX: E09.00 Drug or chemical induced diabetes mellitus with hyperosmolarity without nonketotic hyperglycemic-hyperosmolar coma (NKHHC) (principal); M31.19 Other thrombotic microangiopathy; E87.0 Hyperosmolality and hypernatremia; L03.114 Cellulitis of left upper limb; B37.49 Other urogenital candidiasis; B37.89 Other sites of candidiasis; E27.3 Drug-induced adrenocortical insufficiency; N17.9 Acute kidney failure, unspecified; Z68.1 Body mass index [BMI] 19.9 or less, adult; L89.152 Pressure ulcer of sacral region, stage 2; E11.622 Type 2 diabetes mellitus with other skin ulcer; L98.499 Non-pressure chronic ulcer of skin of other sites with unspecified severity; T38.0X5A Adverse effect of glucocorticoids and synthetic analogues, initial encounter; E86.0 Dehydration; E87.6 Hypokalemia; I12.9 Hypertensive chronic kidney disease with stage 1 through stage 4 chronic kidney disease, or unspecified chronic kidney disease; E09.65 Drug or chemical induced diabetes mellitus with hyperglycemia; N18.9 Chronic kidney disease, unspecified; B96.1 Klebsiella pneumoniae [K. pneumoniae] as the cause of diseases classified elsewhere; B95.2 Enterococcus as the cause of diseases classified elsewhere; B96.89 Other specified bacterial agents as the cause of diseases classified elsewhere; R16.0 Hepatomegaly, not elsewhere classified; Z74.01 Bed confinement status